=== PATIENT | female | born 1935 | race Caucasian/White ===

== ENCOUNTER 2017-05-03 12:03 | Inpatient (IN) ==
[2017-05-03] MEDS ORDERED: 0.9 % Sodium Chloride 1,000 ML IVC ONE (12:13)
[2017-05-03] MEDS ORDERED: Ondansetron 4 MG/2 ML VIAL IVP ONE ×2 (12:13→16:14)
[2017-05-03] MEDS ORDERED: *HR* FentaNYL (PF) 100 MCG/2 ML VIAL IVP ONE ×2 (12:16→14:53)
--- NOTE | 2017-05-03 12:19 | Emergency Department Note ---
Disposition Clinical Impression: Left hip pain Fall with significant injury Qualifiers: Encounter type: initial encounter Qualified Code(s): W19.XXXA - Unspecified fall, initial encounter Back pain Qualifiers: Back pain location: thoracic back pain Chronicity: acute Back pain laterality: bilateral Qualified Code(s): M54.6 - Pain in thoracic spine Left shoulder pain Qualifiers: Chronicity: acute Qualified Code(s): M25.512 - Pain in left shoulder Disposition: Admitted As Inpatient Condition: Fair Referrals: Luis Armando Viera MD [Primary Care Provider] - Time of Disposition: 15:21 Fall HPI - General Chief Complaint: ED Fall Stated Complaint: fall Time Seen by Provider: 05/03/17 12:09 Source: family, EMS Nursing Notes Reviewed: Yes Vital Signs Reviewed: Yes - History of Present Illness HPI Narrative: 81-year-old female who presents by EMS secondary to fall in a parking lot no loss of consciousness but unsure why patient fell. Patient states she fell a few weeks ago as well with without explanation. Patient has a walker which was found underneath her. Patient states she hurts on the left side of her head left shoulder and left elbow and Left pelvis patient unable to move. x 2 hrs. unsure if this was a mechanical fall. Patient's states she got ahead of him but then turned slightly lost balance and then fell while walking with her walker. She states she is down for quite some time unable to move because of problems with getting an ambulance. Patient has a history of neuropathy of unknown origin which may be part of the problem. Patient also started on a new medication for her neuropathy 4 weeks ago that also may be attributing. Patient denies anticoagulation use. - Related Data Home Medications Medication Instructions Recorded Confirmed Unable To Obtain [Unable to Obtain] 04/25/17 04/25/17 Allergies Allergy/AdvReac Type Severity Reaction Status Date / Time No Known Allergies Allergy Verified 04/25/17 10:06 All systems ED: reviewed and negative except as stated. Review of Systems: As Per HPI Constitutional: Denies: fever, weakness Eyes: Denies: vision change ENT ED: Denies: congestion Cardiovascular: Denies: chest pain Respiratory: Denies: cough, wheezes Gastrointestinal: Denies: abdominal pain, nausea, vomiting, diarrhea Genitourinary: Denies: urgency, dysuria Musculoskeletal: Reports: back pain, neck pain Integumentary: Denies: rash Neurological: Denies: headache Hematological/Lymphatic: Denies: easy bleeding Fall PMH - Past Medical History Medical history: Reports: hypertension Psychiatric history: Reports: no psych history - Social History Smoking Status: Never smoker Alcohol use: Reports: none Drug use: Reports: none Physical Exam Vital Signs Temperature 97.4 F L 05/03/17 12:04 Pulse Rate 64 05/03/17 12:04 Respiratory Rate 18 05/03/17 12:04 Blood Pressure 127/73 05/03/17 12:04 O2 Sat by Pulse Oximetry 100 05/03/17 12:04 Temperature 97.4 F L 05/03/17 12:04 Pulse Rate 64 05/03/17 12:04 Respiratory Rate 18 05/03/17 12:04 Blood Pressure 127/73 05/03/17 12:04 O2 Sat by Pulse Oximetry 100 05/03/17 12:04 Oxygen Delivery Oxygen Delivery Room Air 81-year-old female who is alert and oriented 3 and is in acute distress secondary to pain. Patient is unable to move and had to be rolled onto her right side secondary to pain down completely left side of her body. Patient has inability to move the left upper extremity and has tenderness at the humerus , elbow, forearm. She has midline cervical tenderness and possibly mid thoracic tenderness to palpation but unable to discern secondary to patient having difficulty discerning pain in her upper extremity and hip with her back. No gross deformities palpated no step-offs no deviations no bruising of her spine. Patient has positive tenderness to her pelvis and hip on the left side. Patient has no abnormal vital signs - General Limitations: no limitations General appearance: alert, in no apparent distress - Head Head exam: atraumatic, normocephalic, normal inspection - Eye Eye exam: Present: normal appearance, PERRL, EOMI - ENT ENT exam: normal exam, normal oropharynx, mucous membranes moist - Neck Neck exam: Present: normal inspection, full ROM, trachea midline, tenderness - Chest Chest inspection: Present: normal inspection, symmetric chest wall rise - Respiratory Respiratory exam: Present: normal lung sounds bilaterally - Cardiovascular Cardiovascular exam: Present: regular rate, normal rhythm, normal heart sounds Course Vital Signs Temperature 97.4 F L 05/03/17 12:04 Pulse Rate 64 05/03/17 12:04 Respiratory Rate 18 05/03/17 12:04 Blood Pressure 127/73 05/03/17 12:04 O2 Sat by Pulse Oximetry 100 05/03/17 12:04 Temperature 97.4 F L 05/03/17 12:04 Pulse Rate 64 05/03/17 12:04 Respiratory Rate 18 05/03/17 12:04 Blood Pressure 127/73 05/03/17 12:04 O2 Sat by Pulse Oximetry 100 05/03/17 12:04 Oxygen Delivery Oxygen Delivery Room Air Fall - MDM Narrative Medical decision making narrative: Fall injury secondary to possible mechanical reasons/possible other reasons that need to be identified. Imaging: CT head, cervical, x-ray left shoulder, humerus, elbow, forearm, wrist, chest x-ray, left pelvis and hip ordered. Patient administered medications for pain: 50 g fentanyl, IV normal saline ordered 1 L. Labs: CBC, BMP, troponin, LFTs ordered to rule out other causes. X-ray results: Displaced angulated oblique humerus diaphyseal fracture. Triceps muscular shadow appears prominent which may be due to swelling, however cannot exclude intramuscular hematoma. Subacute appearing fractures of the right superior and inferior pubic rami with apparent callus formation. Urinalysis shows large blood and moderate amount of leukocyte esterase. Sample sent for culture. If culture showed bacteria recommend start patient on antibiotic therapy. Patient currently does not have any urinary symptoms. No subacute factors identified on other imaging. Discussed case with Dr. Martinez of orthopedic surgery who states that may on to medicine and he will see the patient today. Patient has been admitted to hospitalists Dr. Antonio was except the patient for inpatient treatment for pain control until orthopedics has evaluated patient. Patient placed in a sling and will continue pain management issues are really had to 50 g doses of fentanyl IV. On reevaluation patient still has good radial pulse and equal sensation when compared to right upper extremity. The patient has no decreased sensation in her lower extremities as well. - Lab Data Lab results reviewed: Yes I reviewed the patient's lab results. Lab results narrative: Short CBC 05/03/17 Range/Units 12:28 WBC 7.5 (4.3-11.1) K/mcL Hgb 14.6 (11.5-15.4) g/dL Hct 43.7 (35.3-44.9) % Plt Count 154 (140-400) K/mcL Neutrophils # 5.2 (1.6-8.9) K/mcL BMP 12/15/17 Range/Units 12:28 Sodium 138 (136-145) mEq/L Potassium 3.6 (3.5-4.5) mEq/L Chloride 101 (98-109) mEq/L Carbon Dioxide 30 H (19-29) mEq/L BUN 17 (7-20) mg/dL Creatinine 0.91 (0.57-1.11) mg/dL Glucose 105 H (70-99) mg/dL Calcium 10.2 (8.6-10.8) mg/dL Liver Function 05/03/17 Range/Units 12:28 Total Bilirubin 0.9 (0.2-1.2) mg/dL AST 27 (5-34) Units/L ALT 19 (0-55) Units/L Alkaline Phosphatase 61 (38-126) Units/L Albumin 3.7 (3.5-5.0) g/dL Urine 05/03/17 Range/Units 13:54 Urine Color Yellow (Yellow) Urine Clarity Cloudy A (Clear) Urine pH 6.0 (5.0-8.0) pH Units Ur Specific [place] 1.017 (1.010-1.025) Urine Protein Negative (Neg-Trace) mg/dL Urine Glucose (UA) Normal (Normal) mg/dL - Radiology Data Radiology results reviewed: Yes I reviewed the patient's radiology results. Cervical Spine CT 05/03/17 12:13 IMPRESSION: No acute fracture of the cervical spine evident. D/ / Martín Natarajan MD / Martín Natarajan MD Interpreting Provider: Martín Natarajan MD Chest X-Ray 05/03/17 12:13 IMPRESSION: 1. No active pulmonary disease. 2. Cardiomegaly without overt failure. 3. Hiatal hernia. D/ / Darrin Kim MD / Darrin Kim MD Interpreting Provider: Darrin Kim MD Head CT 05/03/17 12:13 IMPRESSION: No acute intracranial abnormality. D/ / Chelsea House / Chelsea House Interpreting Provider: Chelsea House Hip X-Ray 05/03/17 12:13 IMPRESSION: 1. No definite acute fracture of the pelvis and left hip. 2. Subacute appearing fractures of the right superior and inferior pubic rami with apparent callus formation. 3. Moderate bilateral hip osteoarthritis. 4. No obvious sacral fracture. Evaluation is severely limited by overlying bowel gas and stool. D/ / 05/03/2017 14:05:46 Penelope Gonzalez MD / nohemy Interpreting Provider: Penelope Gonzalez MD Elbow X-Ray 05/03/17 12:21 IMPRESSION: 1. Partial visualization of a humerus fracture discussed in a separate report. 2. The elbow, forearm and hand showed no acute abnormality. D/ / Harvey Navarro MD / Harvey Navarro MD Interpreting Provider: Harvey Navarro MD Forearm X-Ray 05/03/17 12:49 IMPRESSION: 1. Partial visualization of a humerus fracture discussed in a separate report. 2. The elbow, forearm and hand showed no acute abnormality. D/ / Harvey Navarro MD / Harvey Navarro MD Interpreting Provider: Harvey Navarro MD Hand X-Ray 05/03/17 12:49 IMPRESSION: 1. Partial visualization of a humerus fracture discussed in a separate report. 2. The elbow, forearm and hand showed no acute abnormality. D/ / Harvey Navarro MD / Harvey Navarro MD Interpreting Provider: Harvey Navarro MD Humerus X-Ray 05/03/17 12:49 IMPRESSION: Displaced angulated oblique humerus diaphyseal fracture. Triceps muscular shadow appears prominent which may be due to swelling, however cannot exclude intramuscular hematoma. D/ / Slim Obrien / Slim Obrien Interpreting Provider: Slim Obrien - EKG Data EKG attestation: Yes I reviewed and interpreted this EKG. EKG results narrative: EKG taken 05/03/2017 at 1324 hrs. shows an irregularly irregular rhythm with first-degree AV block at a rate of 73 bpm.
[2017-05-03 12:38] LABS: Basophils % 0.5 %; Eosinophils # 0.1 K/mcL (0.0-0.6); Eosinophils % 1.9 %; Hematocrit 43.7 % (35.3-44.9); Hemoglobin 14.6 g/dL (11.5-15.4); Immature Granulocytes % 1.2 % (0-4); Lymphocytes # 1.7 K/mcL (0.6-4.6); Lymphocytes % 22.2 %; Mean Corpuscular HGB Conc 33.4 g/dL (31.6-35.5); Mean Corpuscular Hemoglobin 30.9 pg (28.0-33.3); Mean Corpuscular Volume 92.4 fL (83.0-100.0); Mean Platelet Volume 10.7 fL (9.4-12.4); Monocytes # 0.3 K/mcL (0.0-1.3); Monocytes % 4.4 %; Neutrophils # 5.2 K/mcL (1.6-8.9); Platelet Count 154 K/mcL (140-400); Red Blood Count 4.73 M/mcL (3.82-4.97); Red Cell Distribution Width 12.9 % (11.5-14.5); Segmented Neutrophils % 69.8 %
--- NOTE | 2017-05-03 12:39 | Emergency Department Note ---
START Narrative - START START: I examined this patient and my medical decision-making was reviewed with the GASOLINE ATTENDANT/PA/Advanced Practice Nurse/Resident Physician. I agree with the documented findings, disposition and treatment plan as described except to the extent set forth below. ED attending note: Patient seen with emergency medicine resident Dr. Abdelrahman Alcantara. We independently evaluated the patient. We independently had face-to- face contact with the patient. Please see a copy of his note for details of the history and physical, evaluation, management and disposition of this emergency Department patient. Briefly: A 81-year-old female mechanical fall while using cane, 45 minutes until EMS arrived was at her side. There was no loss of consciousness she has pain in her back shoulder and bilateral hips. She is not on blood thinners. Her GCS is 15. She is nonfocal neurologically. There is no open lacerations or wounds. CT and x-rays are pending. Disposition pending. Clinically cleared after she was log rolled off the long board.
[2017-05-03 12:52] LABS: Alanine Aminotransferase 19 Units/L (0-55); Albumin 3.7 g/dL (3.5-5.0); Albumin/Globulin Ratio 1.1 (1.1-2.2); Alkaline Phosphatase 61 Units/L (38-126); Aspartate Amino Transferase 27 Units/L (5-34); BUN/Creatinine Ratio 19 (6-26); Bilirubin,Total 0.9 mg/dL (0.2-1.2); Blood Urea Nitrogen 17 mg/dL (7-20); Calcium 10.2 mg/dL (8.6-10.8); Carbon Dioxide 30 mEq/L (19-29); Chloride 101 mEq/L (98-109); Globulin 3.5 g/dL (2.4-3.5); Glucose 105 mg/dL (70-99); Osmolality,Calculated 288 (280-300); Potassium 3.6 mEq/L (3.5-4.5); Sodium 138 mEq/L (136-145); Total Protein 7.2 g/dL (6.0-8.3); eGFR For African Americans > 60 (> 60); eGFR For Non-African Americans 59 (> 60)
[2017-05-03 13:06] LABS: Creatine Kinase 121 Units/L (29-168)
[2017-05-03 14:03] LABS: Bilirubin,Urine Negative (Negative); Blood,Urine Large (Negative); Clarity,Urine Cloudy (Clear); Color,Urine Yellow (Yellow); Glucose,Urine (UA) Normal (Normal); Ketones,Urine Negative (Negative); Leukocyte Esterase,Urine Moderate (Negative); Nitrite,Urine Negative (Negative); Protein,Urine Negative (Neg-Trace); Specific Gravity,Urine 1.017 (1.010-1.025); Urobilinogen,Urine Normal (Normal)
[2017-05-03 14:06] LABS: Bacteria,Urine Moderate per hpf (None-Few); Hyaline Casts,Urine None Seen per lpf (None-Few); RBC,Urine TNTC per hpf (0-3); Squamous Epithelial Cell,Urine Moderate per lpf (None-Few); WBC,Urine 50-100 per hpf (0-3)
[2017-05-03] MEDS ORDERED: Naloxone 0.4 MG/ML INJ IVP PRN (16:02)
[2017-05-03] MEDS ORDERED: *HR* Morphine 2 MG/ML SYRINGE IVP PRN (16:02)
[2017-05-03] MEDS ORDERED: Ondansetron 4 MG/2 ML VIAL IVP PRN (16:02)
--- NOTE | 2017-05-03 16:10 | Internal Med History&Physical ---
Date of Encounter: 05/03/17 Time of Encounter: 15:00 Assessment and Plan (1) Left humeral fracture Current visit: Yes Status: Acute Secondary to fall. - Orthopedic surgery consulted, appreciate assistance - Pain management with PO narcotics and IV narcotics PRN - NPO at midnight in case surgical management is indicated. Qualifiers: Encounter type: initial encounter Humerus Location: shaft Fracture type: closed Fracture morphology: unspecified fracture morphology Qualified Code(s ): S42.302A - Unspecified fracture of shaft of humerus, left arm, initial encounter for closed fracture (2) HTN (hypertension) Current visit: Yes Status: Acute BP stable - attempt to obtain home medication list, currently unavailable Qualifiers: Hypertension type: essential hypertension Qualified Code(s): I10 - Essential (primary) hypertension Internal Medicine - H&P: HPI Chief complaint: Left humerus fracture Plans for Post Hospital Care: Home History of present illness: Ms. Alvarez is a 81 year old female with history of GERD, HTN, and peripheral neuropathy who presented to the ED this afternoon after falling outside of a business today while walking to her car. Her was with her and she was using her walker, but she lost her balance and fell. She remembers the entire event, did not lose consciousness and did not hit her head. She complained of back pain and so she was not moved for 40 minutes while waiting for an ambulance to arrive. In the ED she was found to have a left humerus fracture and orthopedic surgery was consulted. She states that she fell two weeks ago and had rib contusions diagnosed at her local ED. Past Med Surg Social Fam HX - Past Medical History Medical history: GERD, hypertension Psychiatric history: no psych history - Past Surgical History Surgical History: no surgical history - Social History Smoking Status: Never smoker Alcohol use: none Drug use: none - Family History Mother Hx Family Cardiac Disorders: Yes Internal Medicine - H&P: Meds Unable To Obtain [Unable to Obtain] 04/25/17 [History] 3 Allergy/AdvReac Type Severity Reaction Status Date / Time No Known Allergies Allergy Verified 04/25/17 10:06 All Systems PM: A 10-system review of systems was performed and is negative for pertinent findings except as documented above in the HPI. - Constitutional Vitals: Temp Pulse Resp BP Pulse Ox 97.4 F L 70 16 127/73 98 05/03/17 12:04 05/03/17 16:01 05/03/17 16:01 05/03/17 16:01 05/03/17 16:01 General appearance: Present: A&O X 3, pleasant, no acute distress - Head Head exam: Present: atraumatic - Eye Eye exam: Present: EOMI, sclera anicteric - ENT ENT exam: Present: mucous membranes moist - Neck Neck exam general surgery: Present: supple - Respiratory Respiratory exam: Present: CTAB. Absent: wheezes - Cardiovascular Cardiovascular exam: Present: RRR. Absent: diastolic murmur, gallop, rubs, systolic murmur - GI/Abdominal GI/Abdominal exam: Present: normal bowel sounds, soft. Absent: distended, tenderness - Extremities Exam Extremities exam: Absent: pedal edema - Neurological Exam Neurological exam: Present: no focal deficits - Skin Skin exam: Absent: rash Internal Med - H&P Results - Labs CBC & Chem 7: 05/03/17 12:28 05/03/17 12:28
[2017-05-03] MEDS ORDERED: Ondansetron 4 MG/2 ML VIAL ONE (16:17)
--- NOTE | 2017-05-03 16:48 | Orthopedic Consult Note ---
Date of Encounter: 05/03/17 Time of Encounter: 17:15 Assessment and Plan (1) Left humeral fracture Current Visit: Yes Status: Acute Patient has left humeral fracture which will require ORIF. Plan for this to be performed by Dr. Martinez on 05/05/17. Procedure as well as r/b/a were discussed with patient and family and consent was obtained. All questions answered. Patient sent from ER with only simple sling. She needs to have posterior splint applied. Nursing made aware and will arrange for this to be applied. Ice and elevate as needed. ROM of fingers as tolerated. NWB. Pain control per hospitalist. Qualifiers: Encounter type: initial encounter Humerus Location: shaft Fracture type: closed Fracture morphology: unspecified fracture morphology Qualified Code(s ): S42.302A - Unspecified fracture of shaft of humerus, left arm, initial encounter for closed fracture History of Present Illness Chief complaint: left arm pain HPI: Ms. Alvarez is a 81 year old female who fell in a parking lot earlier today landing on her left side. She has had pain in the left shoulder, elbow, hip, and back since the fall. Denies hitting head or LOC. Pain in arm described as aching pain, constant, worse with motion. Denies numbness or tingling to all extremities. She has constant aching pain in back as well. She normally ambulates well with a walker. She fell today due to loss of balance. She has fallen several times recently. Denies chest pain, SOB, fevers recently. Past Med Surg Social Fam HX - Past Medical History Medical history: GERD, hypertension Psychiatric history: no psych history - Past Surgical History Surgical History: no surgical history - Social History Smoking Status: Never smoker Alcohol use: none Drug use: none - Family History Mother Hx Family Cardiac Disorders: Yes Medications and Allergies Unable To Obtain [Unable to Obtain] 04/25/17 [History] 3 Allergy/AdvReac Type Severity Reaction Status Date / Time No Known Allergies Allergy Verified 04/25/17 10:06 All Systems Reviewed: A 10-system review of systems was performed and is negative for pertinent findings except as documented above in the HPI. - Constitutional Constitutional: as per HPI - Cardiovascular Cardiovascular: as per HPI - Respiratory Respiratory: as per HPI - Musculoskeletal Musculoskeletal: as per HPI Physical Exam - Constitutional Vitals: Temp Pulse Resp BP Pulse Ox 97.4 F L 70 16 127/73 98 05/03/17 12:04 05/03/17 16:01 05/03/17 16:01 05/03/17 16:01 05/03/17 16:01 - Elbow left Location of pain elbow: anterior, posterior Pain modifiers elbow: with activity (LUE in sling, full ROM of fingers and wrist , ROM of elbow and shoulder restricted secondary to known fracture, grossly NV intact, brisk cap refill. ) Results - Labs Result Diagrams: 05/03/17 12:28 05/03/17 12:28 Labs: Abnormal lab results Carbon Dioxide 30 mEq/L (19-29) H 05/03/17 12:28 Est GFR (Non-Af Amer) 59 (> 60) L 05/03/17 12:28 Glucose 105 mg/dL (70-99) H 05/03/17 12:28 Urine Clarity Cloudy (Clear) A 05/03/17 13:54 Urine Blood Large (Negative) H 05/03/17 13:54 Ur Leukocyte Esterase Moderate (Negative) H 05/03/17 13:54 Urine Microscopic RBC TNTC per hpf (0-3) H 05/03/17 13:54 Urine Microscopic WBC 50-100 per hpf (0-3) H 05/03/17 13:54 Ur Squamous Epith Cells Moderate per lpf (None-Few) H 05/03/17 13:54 Urine Bacteria Moderate per hpf (None-Few) H 05/03/17 13:54 Ur Culture Indicated? YES (NO) A 05/03/17 13:54 All other labs normal. - Diagnostic results Elbow x-ray: report reviewed, image reviewed Wrist/Hand x-ray: report reviewed, image reviewed Hip x-ray: report reviewed, image reviewed Consult Discharge Plan - Plan Referrals: Luis Armando Viera MD [Primary Care Provider] - - Attending Attestation Case and plan of care discussed with supervising physician who was available for all aspects of care.
[2017-05-03] MEDS: *HR* OxyCODONE Immed Rel 5 MG TABLET PO PRN ×2 (18:46→22:08)
[2017-05-04] MEDS: *HR* OxyCODONE Immed Rel 5 MG TABLET PO PRN ×3 (03:43→21:52)
[2017-05-04 07:03] LABS: Basophils % 0.1 %; Eosinophils % 0.1 %; Hematocrit 37.5 % (35.3-44.9); Immature Granulocytes % 0.5 % (0-4); Lymphocytes # 1.1 K/mcL (0.6-4.6); Lymphocytes % 11.2 %; Mean Corpuscular HGB Conc 33.9 g/dL (31.6-35.5); Mean Corpuscular Hemoglobin 31.4 pg (28.0-33.3); Mean Corpuscular Volume 92.6 fL (83.0-100.0); Mean Platelet Volume 10.6 fL (9.4-12.4); Monocytes # 0.5 K/mcL (0.0-1.3); Monocytes % 4.9 %; Neutrophils # 8.1 K/mcL (1.6-8.9); Platelet Count 165 K/mcL (140-400); Red Blood Count 4.05 M/mcL (3.82-4.97); Red Cell Distribution Width 13.1 % (11.5-14.5); Segmented Neutrophils % 83.2 %
[2017-05-04 07:16] LABS: BUN/Creatinine Ratio 25 (6-26); Blood Urea Nitrogen 19 mg/dL (7-20); Calcium 9.3 mg/dL (8.6-10.8); Carbon Dioxide 29 mEq/L (19-29); Chloride 101 mEq/L (98-109); Glucose 142 mg/dL (70-99); Osmolality,Calculated 291 (280-300); Potassium 3.2 mEq/L (3.5-4.5); Sodium 138 mEq/L (136-145); eGFR For African Americans > 60 (> 60); eGFR For Non-African Americans > 60 (> 60)
[2017-05-04 07:19] LABS: Hemoglobin 12.7 g/dL (11.5-15.4)
--- NOTE | 2017-05-04 09:29 | Internal Med Progress Note ---
Date of Encounter: 05/04/17 Time of Encounter: 08:50 - Assessment and plan (1) Hypokalemia Current Visit: Yes Status: Acute Assessment and plan: Replaced, continue to monitor (2) Left humeral fracture Current Visit: Yes Status: Acute Assessment and plan: Management per ortho Pain control and DVT prophylaxis Obtain Sacrum/coccyx Xray for tail bone pain Qualifiers: Encounter type: initial encounter Humerus Location: shaft Fracture type: closed Fracture morphology: unspecified fracture morphology Qualified Code(s ): S42.302A - Unspecified fracture of shaft of humerus, left arm, initial encounter for closed fracture (3) HTN (hypertension) Current Visit: Yes Status: Chronic Assessment and plan: Controlled at this time, initiate home meds when confirmed and prn Qualifiers: Hypertension type: essential hypertension Qualified Code(s): I10 - Essential (primary) hypertension (4) Abnormal urinalysis Current Visit: Yes Status: Acute Assessment and plan: Prsenece of blood and LE Sent for culture Start 1g ceftriaxone daily, will de-escalate if culture is negative - Subjective Interval history: Seen and evaluated at bedside Admitted and being managed for a left humeral fracture following a fall. Patient has a medical history of hypertension, blood pressure currently controlled without medications. She complained of tailbone pain upon evaluation this is worse when she is moved. This is her second fall in 2 weeks - Constitutional Vitals: Temp Pulse Resp BP Pulse Ox 98.3 F 63 17 106/66 91 05/04/17 06:58 05/04/17 06:58 05/04/17 06:58 05/04/17 06:58 05/04/17 06:58 General appearance: Present: A&O X 3, pleasant, no acute distress - Head Head exam: Present: atraumatic, normocephalic - Eye Eye exam: Present: PERRL, conjuntiva pink, sclera anicteric Pupils: Present: PERRL - Neck Neck exam general surgery: Present: supple, trachea midline. Absent: lymphadenopathy - Respiratory Respiratory exam: Present: CTAB. Absent: accessory muscle use, rales, rhonchi, wheezes - Cardiovascular Cardiovascular exam: Present: RRR, +S1, +S2. Absent: diastolic murmur, gallop, rubs, systolic murmur - GI/Abdominal GI/Abdominal exam: Present: normal bowel sounds, soft, no peritoneal signs. Absent: distended, tenderness - Extremities Exam Additional comments: L arm in sling, neurovascularly intact - Neurological Exam Neurological exam: Present: alert, CN II-XII intact, oriented X3, no focal deficits. Absent: pronater drift, facial droop, speech deficit - Skin Skin exam: Present: dry, intact Internal Medicine: Result - Labs CBC & Chem 7: 05/04/17 06:41 05/04/17 06:41 Labs: Short CBC 05/04/17 Range/Units 06:41 WBC 9.7 (4.3-11.1) K/mcL Hgb 12.7 D (11.5-15.4) g/dL Hct 37.5 (35.3-44.9) % Plt Count 165 (140-400) K/mcL Neutrophils # 8.1 (1.6-8.9) K/mcL BMP 05/04/17 06:41 Sodium 138 Potassium 3.2 L Chloride 101 Carbon Dioxide 29 BUN 19 Creatinine 0.75 Glucose 142 H Calcium 9.3 Consult Discharge Plan - Plan Referrals: Luis Armando Viera MD [Primary Care Provider] -
[2017-05-04] MEDS ORDERED: cefTRIAXone 1,000 MG in Water for inj. (sterile) 10 ML IVP SCH (10:00)
[2017-05-04] MEDS ORDERED: Acetaminophen 325 MG TABLET PO PRN ×2 (11:01→19:54)
[2017-05-04] MEDS ORDERED: Ondansetron 4 MG/2 ML VIAL ONE (14:41)
[2017-05-04] MEDS ORDERED: *HR* FentaNYL (PF) 100 MCG/2 ML VIAL ONE (14:41)
[2017-05-04] MEDS ORDERED: Lidocaine -MPF 2% 2 ML VIAL ONE (14:41)
[2017-05-04] MEDS ORDERED: *HR* Rocuronium Bromide 50 MG/5 ML VIAL ONE (14:41)
[2017-05-04] MEDS ORDERED: *HR* Propofol 200 MG/20 ML VIAL IVP ONE (14:41)
[2017-05-04] MEDS ORDERED: Ringers Solution, Lactated 1,000 ML ONE (14:44)
--- NOTE | 2017-05-04 14:59 | Anesthesia Evaluation PreOp ---
Date of Encounter: 05/04/17 Time of Encounter: 14:57 - Past History Planned Operation: ORIF R humerus Cardiac History: HTN Pulmonary History: Denies Any Significant HX INSPECTOR PENETRANT History: Denies Any Significant HX Other Medical History: GERD Anesthesia History: Past Anesthesia (none, no known family hx of anes complications) Alcohol Use: none Drug use: none Medications and Allergies Unable To Obtain [Unable to Obtain] 04/25/17 [History] 3 Allergy/AdvReac Type Severity Reaction Status Date / Time No Known Allergies Allergy Verified 04/25/17 10:06 - Meds/Allergy Pre-op Review Medications Reviewed: Yes Allergies Reviewed: Yes Beta Blockers on Current Med List: No Anesthesia Results - Labs 05/04/17 06:41 05/04/17 06:41 Anesthesia Exam Vital Signs/O2 Sat, Most Current Temp Pulse Resp BP Pulse Ox 98.1 F 78 17 111/73 93 05/04/17 11:15 05/04/17 11:15 05/04/17 11:15 05/04/17 11:15 05/04/17 11:42 Height: 1.57m Weight: 80kg NPO (# of Hours): >8 - HEENT Pupil (Motor): Pupils equal, EOMI Mallampati: II Teeth: Edentulous Oral Opening: Greater than 3 - INSPECTOR PENETRANT LOC: Oriented INSPECTOR PENETRANT Motor: Normal RUE, Normal LUE, Normal RLE, Normal LLE, Normal Face INSPECTOR PENETRANT Sensory: Normal: RUE, LUE, RLE, LLE, Face - Cardiac Rhythm: Regular - Pulmonary Breath Sounds: bilateral Clear Respiratory Effort: Symmetrical Anesthesia Assess/Plan ASA Score: 2 Modified Stephania Scale for Level of Consciousness: Cooperative, oriented, and tranquil Anesthetic Plan: General (r/b/a discussed, questions answered, consent obtained) , Regional (Left supraclav nn block) Monitoring Plan: Standard Monitors Recovery Plan: PACU
[2017-05-04] MEDS ORDERED: Ringers Solution, Lactated 1,000 ML IVC SCH ×2 (15:00→19:54)
--- NOTE | 2017-05-04 15:59 | Anesthesia Procedures ---
Date of Encounter: 05/04/17 Time of Encounter: 14:50 Procedures: Anesthesia - Nerve Block Procedure Date: 05/04/17 Time: 15:57 Pre-op Diagnosis: Left humerus fracture Surgical Procedure: ORIF L humerus fracture Checklist: Correct Patient Identifier, Correct procedure, History checked Correct side: Left Blood Thinner: No Monitor Applied: EKG, BP, Pulse Oximetry Supplemental Oxygen via Nasal Cannula (L/min): 2 Sedation: Fentanyl (mcg): 100 Indication: Post Op Analgesia (per surgeons request) Pre-op Neuro Deficits: No Block Type: Supraclavicular Sterile Technique: Yes Ultrasound used: Yes Anatomy identified: Yes Visual spread of Local: Yes Neuro Stimulation: No Blood on Needle Aspiration: No Smooth Injection of Local: Yes Pain with Injection of Local: No Prep: Chlorhexadine Needle: 22 x 50 mm Stimuplex Local: Ropivacaine (0.5%) Volume (cc): 30 Number of Attempts: 1 Complications: None/effective block Vitals: see nursing notes
[2017-05-04] MEDS ORDERED: Ondansetron 4 MG/2 ML VIAL IVP ONE ×2 (16:00→19:54)
[2017-05-04] MEDS ORDERED: Plasma-Lyte A (PH 7.4) 1,000 ML IVC SCH (16:00)
[2017-05-04] MEDS ORDERED: *HR* FentaNYL (PF) 100 MCG/2 ML VIAL IVP PRN ×2 (16:00→19:54)
[2017-05-04] MEDS ORDERED: Naloxone 0.4 MG/ML INJ IVP PRN ×3 (16:00→19:54)
[2017-05-04] MEDS ORDERED: Neostigmine Methylsulfate 3 MG/3 ML SYRINGE ONE (17:30)
--- NOTE | 2017-05-04 18:17 | Operative Note ---
Date of procedure: 05/04/17 Pre-op diagnosis: Left humeral shaft fracture, distal third spiral fracture Post-op diagnosis: same Procedure: Left humerus open reduction internal fixation Implants: Synthes 3.5 mm extra-articular postero-lateral plate Anesthesia: JUDY regional Surgeon: Zach Martinez Estimated blood loss (cc): 500 Tourniquet Time (Minutes): 23 Specimen: 0 Condition: stable Disposition: PACU Procedure in Detail: Indications for surgery: Patient is an 81-year-old left woman who fell yesterday sustaining a fracture of the distal humerus shaft with no articular extension. The fracture was a displaced spiral fracture at the mid to distal third level.. Procedure: The patient received IV antibiotics in the holding area, and also received a supraclavicular block. She was brought into the operating room, placed on the OR table where and underwent general anesthesia. The patient was then positioned in the right lateral decubitus position using a pelvic youssef to stabilize. All bony prominences were well-padded, and an axillary roll was also used. The left upper extremity was then prepped and draped in usual sterile fashion. A sterile tourniquet was applied to the upper arm, as close to the axilla as possible. A large bump was placed under the right arm. A timeout was then performed. The left upper extremity was then elevated, exsanguinated with Cornleius wrap, and the tourniquet was raised to a pressure of 250 mmHg. A 15 cm posterior longitudinal incision was made curving incision slightly to the lateral side of the tip of the olecranon. Subcutaneous tissue was sharply incised with Bovie cutting down to the level of the triceps fascia. A hart elevator was then used to expose the triceps from the medial and lateral intermuscular septae. The ulnar nerve was then dissected out, and gently mobilized just up to the cubital tunnel level. A yellow vessel loop was placed around the ulnar nerve to diya this location. The lateral septum was also elevated off the lateral column. The triceps muscle was elevated. I identified the musculocutaneous and radial nerves passing through the lateral intermuscular septum. The nerve was dissected out and tracing it proximally. This was also tagged with a yellow vessel loop. The triceps muscle mass was elevated exposing the fracture. The top part of the fracture was at the spiral groove with a nerve crossing. In order to get better exposure, the tourniquet was removed and incision was lengthened 5 cm proximally. The nerve was dissected more proximally heading up to a spiral groove and protecting it. Axial traction was applied distracting the fracture. The fracture was cleaned up with curettes, removing fracture hematoma. It was then irrigated out with normal saline. Since this was an extra-articular fracture, we used the posterior lateral extra-articular plate from Synthes. The fracture was reduced and held in place with large bone clamps. Since it was a long oblique fracture., a lag screw was placed distally from lateral to medial , perpendicular to the fracture line. This compressed the fracture and give relatively good stability. This allowed the clamps to be removed. An 8 hole plate was chosen and applied to the posterior surface of the lateral column. The plate was carefully slid under the radial nerve. The plate was secured distally initially with a bicortical screw. Once obtaining the appropriate alignment plate, and then further locked in place using the 2.7 mm locking screws, this was followed by an acentrically placed 3.5 mm screw proximally in compression mode, further compressing the fracture. The remaining screws were then filled in standard technique. This gave a strong construct. The wound was irrigated with normal saline. The ulnar nerve was checked to make sure it was stable, and left simply partially decompressed. The deep fascia was closed with 0 Vicryl sutures. Maria Teresa was also used for further hemostasis of the subcutaneous tissue. The skin was closed subcutaneously with 3-0 Vicryl and finally the skin with a Zipline. Sterile dressings were applied. The patient was placed into a neutral wedge sling. The patient was then positioned supine and extubated and taken to recovery room in stable condition.
--- NOTE | 2017-05-04 19:11 | Anesthesia Evaluation Post Op ---
Date of Encounter: 05/04/17 Time of Encounter: 19:10 - Vital Signs Vital Signs: Vital Signs/O2 Sat, Most Current Temp Pulse Resp BP Pulse Ox 97.9 F 68 16 118/80 91 05/04/17 18:48 05/04/17 18:48 05/04/17 18:48 05/04/17 18:48 05/04/17 18:48 - Lungs Lungs: Clear Ascult./Percussion - Airway Airway: Non-obstructed - Cardiovascular Regular Rate - Mental Status Mental Status: Alert & Oriented, Answers Appropriately - Pain Pain Scale: 0 Pain Scale used: Numeric (1 - 10) - Nausea Vomiting Nausea Vomiting: Not Present - Hydration Hydration: Ice chips - Discharge PostOp Status: Transfer Patient to floor Attestation: I have assessed this patient and find they meet discharge criteria.
[2017-05-04] MEDS ORDERED: MOM Conc 10 ML UD.LIQ PO PRN (19:54)
[2017-05-04] MEDS ORDERED: Sennosides 8.6 MG TABLET PO PRN (19:54)
[2017-05-04] MEDS ORDERED: Temazepam 15 MG CAPSULE PO PRN (19:54)
[2017-05-04] MEDS ORDERED: Ondansetron 4 MG/2 ML VIAL IVP PRN (19:54)
[2017-05-04] MEDS: Ringers Solution, Lactated 1,000 ML IVC SCH (21:55)
[2017-05-04] MEDS: CeFAZolin Premix DUPLEX 2,000 MG/50 ML BAG IVPB SCH (23:13)
[2017-05-05] MEDS: *HR* OxyCODONE Immed Rel 5 MG TABLET PO PRN ×3 (05:15→22:07)
[2017-05-05] MEDS: *HR* Enoxaparin 40 MG/0.4 ML SYRINGE SQ SCH (06:46)
[2017-05-05] MEDS: *HR* Morphine 2 MG/ML SYRINGE IVP PRN ×3 (06:53→18:14)
[2017-05-05 07:06] LABS: Basophils % 0.1 %; Hematocrit 29.9 % (35.3-44.9); Immature Granulocytes % 0.3 % (0-4); Lymphocytes # 1.2 K/mcL (0.6-4.6); Lymphocytes % 13.4 %; Mean Corpuscular HGB Conc 32.4 g/dL (31.6-35.5); Mean Corpuscular Hemoglobin 30.8 pg (28.0-33.3); Mean Corpuscular Volume 94.9 fL (83.0-100.0); Mean Platelet Volume 10.9 fL (9.4-12.4); Monocytes # 0.7 K/mcL (0.0-1.3); Monocytes % 8.1 %; Neutrophils # 7.1 K/mcL (1.6-8.9); Platelet Count 126 K/mcL (140-400); Red Blood Count 3.15 M/mcL (3.82-4.97); Red Cell Distribution Width 13.4 % (11.5-14.5); Segmented Neutrophils % 78.1 %
[2017-05-05 07:12] LABS: Hemoglobin 9.7 g/dL (11.5-15.4)
[2017-05-05 07:20] LABS: BUN/Creatinine Ratio 26 (6-26); Blood Urea Nitrogen 20 mg/dL (7-20); Calcium 8.9 mg/dL (8.6-10.8); Carbon Dioxide 30 mEq/L (19-29); Chloride 103 mEq/L (98-109); Glucose 127 mg/dL (70-99); Osmolality,Calculated 290 (280-300); Potassium 3.8 mEq/L (3.5-4.5); Sodium 138 mEq/L (136-145); eGFR For African Americans > 60 (> 60); eGFR For Non-African Americans > 60 (> 60)
[2017-05-05] MEDS ORDERED: *HR* LORazepam 0.5 MG TABLET PO PRN (08:11)
--- NOTE | 2017-05-05 08:50 | Internal Med Progress Note ---
Date of Encounter: 05/05/17 Time of Encounter: 08:25 - Assessment and plan (1) Acute blood loss as cause of postoperative anemia Current Visit: Yes Status: Acute Assessment and plan: HB down to 9.7 from 12.7, hemodynamically stable Continue to monitor Hb Type and screen done No indication for transfusion at this time (2) Hypokalemia Current Visit: Yes Status: Resolved Assessment and plan: Replaced, K WNL today (3) Left humeral fracture Current Visit: Yes Status: Acute Assessment and plan: Management per ortho POD 1 Pain control and DVT prophylaxis Qualifiers: Encounter type: initial encounter Humerus Location: shaft Fracture type: closed Fracture morphology: unspecified fracture morphology Qualified Code(s ): S42.302A - Unspecified fracture of shaft of humerus, left arm, initial encounter for closed fracture (4) HTN (hypertension) Current Visit: Yes Status: Chronic Assessment and plan: Controlled at this time, continue to hold home dose of HCTZ Qualifiers: Hypertension type: essential hypertension Qualified Code(s): I10 - Essential (primary) hypertension (5) Abnormal urinalysis Current Visit: Yes Status: Acute Assessment and plan: Presence of blood and LE Sent for culture Continue 1g ceftriaxone daily, -Day 2 will de-escalate if culture is negative - Subjective Interval history: Seen and evaluated at bedside Admitted and being managed for a left humeral fracture following a fall. POD 1 s/p Left humeral ORIF She continues to complains of Sacral/Coccyx pain, worse when she is moved She is able to move her legs and there is no sign of dislocation or hip frature Sacral/Coccyx Xray done 05/04 showed no fractures Will obtain L-spine Xray , patient has no sensory complains - Constitutional Vitals: Temp Pulse Resp BP Pulse Ox 98.2 F 94 16 129/67 94 05/05/17 06:40 05/05/17 06:40 05/05/17 06:40 05/05/17 06:40 05/05/17 06:40 General appearance: Present: A&O X 3, pleasant, no acute distress - Head Head exam: Present: atraumatic, normocephalic - Eye Eye exam: Present: PERRL, conjuntiva pink, sclera anicteric Pupils: Present: PERRL - Neck Neck exam general surgery: Present: supple, trachea midline. Absent: lymphadenopathy - Respiratory Respiratory exam: Present: CTAB. Absent: accessory muscle use, rales, rhonchi, wheezes - Cardiovascular Cardiovascular exam: Present: RRR, +S1, +S2. Absent: diastolic murmur, gallop, rubs, systolic murmur - Extremities Exam Extremities exam: Present: warm, radial pulses palpable and symmetrical. Absent : calf tenderness, cyanotic, pedal edema Additional comments: L arm and hand slighlty swollen Distal extremities well vascularized - Back Exam Additional comments: Limited exam as patient is unable to stand or sit up, no visible bruises on sacral region - Neurological Exam Neurological exam: Present: alert, CN II-XII intact, oriented X3, no focal deficits. Absent: pronater drift, facial droop, speech deficit - Skin Skin exam: Present: dry Internal Medicine: Result - Labs CBC & Chem 7: 05/05/17 06:40 05/05/17 06:40 Labs: Short CBC 05/05/17 Range/Units 06:40 WBC 9.1 (4.3-11.1) K/mcL Hgb 9.7 L D (11.5-15.4) g/dL Hct 29.9 L (35.3-44.9) % Plt Count 126 L (140-400) K/mcL Neutrophils # 7.1 (1.6-8.9) K/mcL BMP 05/05/17 06:40 Sodium 138 Potassium 3.8 Chloride 103 Carbon Dioxide 30 H BUN 20 Creatinine 0.76 Glucose 127 H Calcium 8.9 - Impressions Impressions Fluoroscopy 05/04/17 00:00 IMPRESSION: Intraprocedural fluoroscopic spot images as above. See separate procedure report for more information. D/ / Regina Deal Cha, MD / Regina Deal Cha, MD Interpreting Provider: Regina Deal Cha, MD Sacrum and Coccyx X-Ray 05/04/17 11:01 IMPRESSION: No acute abnormality of the sacrum and coccyx appreciated. Study somewhat limited by the patient's condition. RECOMMENDATION: If a strong suspicion of fracture exists, a CT scan of the pelvis without contrast would be recommended. D/ / Chai Beverly MD / Chai Beverly MD Interpreting Provider: Chai Beverly MD - VTE Documentation of Mechanical Device: Intermittent pneumatic compression device Consult Discharge Plan - Plan Referrals: Luis Armando Viera MD [Primary Care Provider] -
[2017-05-05] MEDS: Pregabalin 50 MG CAPSULE PO SCH ×2 (09:37→22:08)
[2017-05-05] MEDS: Loratadine 10 MG TABLET PO SCH (09:37)
[2017-05-05] MEDS: CeFAZolin Premix DUPLEX 2,000 MG/50 ML BAG IVPB SCH (09:37)
[2017-05-05] MEDS: Mirabegron [Myrbetriq] 50 MG PO SCH (09:39)
[2017-05-05] MEDS ORDERED: cefTRIAXone 1,000 MG in Water for inj. (sterile) 10 ML IVP SCH (10:00)
[2017-05-05] MEDS ORDERED: *HR* Morphine 2 MG/ML SYRINGE IVP ONE (10:05)
[2017-05-05] MEDS ORDERED: *HR* Morphine 2 MG/ML SYRINGE ONE (10:08)
[2017-05-05] MEDS: Ringers Solution, Lactated 1,000 ML IVC SCH ×2 (10:10→22:08)
--- NOTE | 2017-05-05 14:42 | Orthopedics Progress Note ---
Date of Encounter: 05/05/17 Time of Encounter: 14:39 Subjective Principal diagnosis: Left humerus fracture Interval history: Patient still complaining of sacral pain. She also reports pain in left shoulder. She reports block has worn off. Left upper extremity: Dressings are clean dry and intact, neutral wedge sling in place. Mild tenderness anterior shoulder. You have asked intact distally and hand with good flexion and extension of digits. Sensation intact to all digits and dorsal radial aspect of hand. Good capillary refill. Lumbar x-rays show arthritis. Patient had sacral x-rays yesterday and pelvic films the day before which showed no fractures. Postoperative day #1, stable Nonweightbearing to left upper extremity We will add NSAIDs for low back pain Continue DVT prophylaxis Continue OT/PT Objective Vital signs: Vital Signs Temp Pulse Resp BP Pulse Ox 05/05/17 12:12 98.8 F 86 16 103/62 94 Intake and Output 05/04/17 05/05/17 05/05/17 23:59 07:59 15:59 Intake Total 1700 / 1700 Balance 1700 / 1700 Intake: IV Fluids 1000 / 1000 Lactated Ringers 1,000 ML @ 75 1000 / 1000 mls/hr IVC .[id number] VAN Rx#: [id number] Oral 700 / 700 - Labs CBC & BMP: 05/05/17 06:40 05/05/17 06:40 Labs: Abnormal lab results RBC 3.15 M/mcL (3.82-4.97) L 05/05/17 06:40 Hgb 9.7 g/dL (11.5-15.4) L D 05/05/17 06:40 Hct 29.9 % (35.3-44.9) L 05/05/17 06:40 Plt Count 126 K/mcL (140-400) L 05/05/17 06:40 Carbon Dioxide 30 mEq/L (19-29) H 05/05/17 06:40 Glucose 127 mg/dL (70-99) H 05/05/17 06:40 Urine Clarity Cloudy (Clear) A 05/03/17 13:54 Urine Blood Large (Negative) H 05/03/17 13:54 Ur Leukocyte Esterase Moderate (Negative) H 05/03/17 13:54 Urine Microscopic RBC TNTC per hpf (0-3) H 05/03/17 13:54 Urine Microscopic WBC 50-100 per hpf (0-3) H 05/03/17 13:54 Ur Squamous Epith Cells Moderate per lpf (None-Few) H 05/03/17 13:54 Urine Bacteria Moderate per hpf (None-Few) H 05/03/17 13:54 Ur Culture Indicated? YES (NO) A 05/03/17 13:54 - VTE Documentation of Mechanical Device: Venous foot pump, device Consult Discharge Plan - Plan Referrals: Luis Armando Viera MD [Primary Care Provider] -
[2017-05-06] MEDS: *HR* Enoxaparin 40 MG/0.4 ML SYRINGE SQ SCH (06:04)
[2017-05-06 06:54] LABS: Basophils % 0.2 %; Eosinophils % 0.4 %; Immature Granulocytes % 0.6 % (0-4); Lymphocytes # 1.6 K/mcL (0.6-4.6); Lymphocytes % 17.3 %; Mean Corpuscular HGB Conc 33.3 g/dL (31.6-35.5); Mean Corpuscular Hemoglobin 31.7 pg (28.0-33.3); Mean Corpuscular Volume 95.1 fL (83.0-100.0); Mean Platelet Volume 11.1 fL (9.4-12.4); Monocytes # 0.7 K/mcL (0.0-1.3); Monocytes % 7.4 %; Neutrophils # 6.7 K/mcL (1.6-8.9); Platelet Count 116 K/mcL (140-400); Red Blood Count 2.84 M/mcL (3.82-4.97); Red Cell Distribution Width 13.6 % (11.5-14.5); Segmented Neutrophils % 74.1 %
[2017-05-06 07:01] LABS: BUN/Creatinine Ratio 28 (6-26); Blood Urea Nitrogen 18 mg/dL (7-20); Calcium 9.1 mg/dL (8.6-10.8); Carbon Dioxide 29 mEq/L (19-29); Chloride 104 mEq/L (98-109); Glucose 121 mg/dL (70-99); Osmolality,Calculated 289 (280-300); Potassium 3.7 mEq/L (3.5-4.5); Sodium 138 mEq/L (136-145); eGFR For African Americans > 60 (> 60); eGFR For Non-African Americans > 60 (> 60)
[2017-05-06] MEDS: *HR* OxyCODONE Immed Rel 5 MG TABLET PO PRN ×3 (07:04→22:34)
[2017-05-06] MEDS: Pregabalin 50 MG CAPSULE PO SCH ×2 (08:22→22:36)
[2017-05-06] MEDS: Loratadine 10 MG TABLET PO SCH (08:23)
[2017-05-06] MEDS: Mirabegron [Myrbetriq] 50 MG PO SCH (08:29)
--- NOTE | 2017-05-06 09:55 | Electrocardiograph Report ---
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
--- NOTE | 2017-05-06 11:15 | Physician Discharge Referral ---
ExtendedCare Referral Info Transfer To: [facility] Provider in Charge: Barney Strange Provider in Charge after Transfer: PCP Institutional Level of Care: Skilled - Diagnosis (1) Acute blood loss as cause of postoperative anemia Priority: Primary Status: Acute (2) Hypokalemia Priority: Primary Status: Resolved (3) Left humeral fracture Priority: Primary Status: Acute (4) HTN (hypertension) Priority: Secondary Status: Chronic (5) Abnormal urinalysis Priority: Primary Status: Resolved Prognosis: Fair Aware of Diagnosis: Patient Aware of Prognosis: Patient - Transfer Medications Home Medications: Loratadine [Allergy Relief] 10 mg PO DAILY 05/05/17 [History] Mirabegron [Myrbetriq] 50 mg PO DAILY 05/05/17 [History] Omeprazole [PriLOSEC] 20 mg PO DAILY 05/05/17 [History] Polyethylene Glycol 3350 [MiraLAX] 17 gm PO DAILY 05/05/17 [History] Potassium Chloride [Klor-Con 10] 10 meq PO DAILY 05/05/17 [History] Pravastatin Sodium [Pravachol] 40 mg PO QPM 05/05/17 [History] Pregabalin [Lyrica] 100 mg PO BID 05/05/17 [History] Solifenacin Succinate [Vesicare] 5 mg PO DAILY 05/05/17 [History] Docusate [Colace] 100 mg PO BID capsule 05/06/17 [Rx] LORazepam [Ativan] 0.5 mg PO DAILY PRN #10 tablet 05/06/17 [Rx] Oxycodone HCl/Acetaminophen [Percocet 5-325 mg Tablet] 1 each PO Q4HR PRN #20 tablet 05/06/17 [Rx] Temazepam [Restoril] 15 mg PO HS PRN capsule 05/06/17 [Rx] Allergies/Adverse Reactions: 3 Allergy/AdvReac Type Severity Reaction Status Date / Time No Known Allergies Allergy Verified 05/05/17 11:15 - Respiratory Orders Smoking Cessation: Smoking cessation has been advised. For more information, call the [place] Tobacco Quit Line at 6-997-YBDV-NOW. - Advance Directives Code Status: Full Code - Mobility Orders Ambulate - Rehabiliation Orders Rehab Potential: Fair Rehab Orders: Evaluation for Physical Therapy - Diet Orders Cardiac CERTIFICATION: I certify that the transfer of the above named patient to an Extended Care Facility is necessary for the continuing treatment of the diagnosis listed. The above information is true and accurate reflection of patient's current condition. Confidential - Redisclosure prohibited without a patient's written consent.
--- NOTE | 2017-05-06 11:21 | Discharge Summary ---
Date of Encounter: 05/06/17 Time of Encounter: 11:16 - Discharge Diagnosis (1) Acute blood loss as cause of postoperative anemia Priority: Primary Status: Acute (2) Hypokalemia Priority: Primary Status: Resolved (3) Left humeral fracture Priority: Primary Status: Acute Qualifiers: Encounter type: initial encounter Humerus Location: shaft Fracture type: closed Fracture morphology: unspecified fracture morphology Qualified Code(s ): S42.302A - Unspecified fracture of shaft of humerus, left arm, initial encounter for closed fracture (4) HTN (hypertension) Priority: Secondary Status: Chronic Qualifiers: Hypertension type: essential hypertension Qualified Code(s): I10 - Essential (primary) hypertension (5) Abnormal urinalysis Priority: Secondary Status: Acute - Discharge Medications Prescriptions: Oxycodone HCl/Acetaminophen [Percocet 5-325 mg Tablet] 1 each PO Q4HR PRN #20 tablet PRN Reason: Pain LORazepam [Ativan] 0.5 mg PO DAILY PRN #10 tablet PRN Reason: Anxiety Home Medications: Loratadine [Allergy Relief] 10 mg PO DAILY 05/05/17 [History] Mirabegron [Myrbetriq] 50 mg PO DAILY 05/05/17 [History] Omeprazole [PriLOSEC] 20 mg PO DAILY 05/05/17 [History] Polyethylene Glycol 3350 [MiraLAX] 17 gm PO DAILY 05/05/17 [History] Potassium Chloride [Klor-Con 10] 10 meq PO DAILY 05/05/17 [History] Pravastatin Sodium [Pravachol] 40 mg PO QPM 05/05/17 [History] Pregabalin [Lyrica] 100 mg PO BID 05/05/17 [History] Solifenacin Succinate [Vesicare] 5 mg PO DAILY 05/05/17 [History] Docusate [Colace] 100 mg PO BID capsule 05/06/17 [Rx] LORazepam [Ativan] 0.5 mg PO DAILY PRN #10 tablet 05/06/17 [Rx] Oxycodone HCl/Acetaminophen [Percocet 5-325 mg Tablet] 1 each PO Q4HR PRN #20 tablet 05/06/17 [Rx] Temazepam [Restoril] 15 mg PO HS PRN capsule 05/06/17 [Rx] Allergies/Adverse Reactions: 3 Allergy/AdvReac Type Severity Reaction Status Date / Time No Known Allergies Allergy Verified 05/05/17 11:15 Date of admission: 05/05/17 09:52 Primary care physician: Luis Armando Viera MD Consults: 05/05/17 19:45 Consult to Occupational Therapy [CONS] Routine Comment: Evaluate, develop and implement POC Reason for Consult: s/p left humerus orif Consult to Physical Therapy [CONS] Routine Comment: Evaluate, develop and implement POC Reason for Consult: s/p humerus ORIF Discharging clinician: Eddie Strange Anticipated date of discharge: 05/06/17 - Patient Status Disposition: Transfer Inpatient Rehab Fac Condition: Good Functional capacity at discharge: independent ambulation Overall status at discharge: patient is progressing back to baseline - Discharge Instructions Follow Up With: Luis Armando Viera MD [Primary Care Provider] - - Diet and Activity Activity: as per physical therapy, resume usual activities as tolerated Diet: low salt diet Interval History: See below Hospital course: Ms. Alvarez is a 81 year old female with PMH of HTN, who was transferred from outside facility for management of a Left humeral fracture following a mechanical fall. She had also reported prior recurrent falls She also has a PMH of osteoporosis ON evaluation, imaging revealed a closed Left humeral fracture, CBC and Chem were unremarkable. Her urine analysis was suspicious for UTI She was admitted and orthopedics was consulted She is s/p Left humeral Fracture POD 2 . Further imaging including a sacral and coccyx Xray as well as Lumbar spine Xray revealed no fractures. Her urine culture yielded no growth and she received Ceftriaxone daily for 3 days She sustained mild anemia from surgery but she is heodynamically and medically stable She is seen and evaluated at bedside with family this morning, no new complains Orthopedics is following From a medical stand point, she is clinically stable to be discharged for SNF/ Swing bed as recommended by [facility] Her blood pressure medications have been held since admission as blood pressure has been WNL Plan of care discused with family, verbalized understanding. - Time Spent with Patient Total time spent providing and/or coordinating discharge services: Greater than 30 minutes - Constitutional Vitals: Temp Pulse Resp BP Pulse Ox 97.5 F L 88 18 112/59 93 05/06/17 10:55 05/06/17 10:55 05/06/17 10:55 05/06/17 10:55 05/06/17 10:55 General appearance: Present: A&O X 3, pleasant, no acute distress - Head Head exam: Present: atraumatic, normocephalic - Eye Eye exam: Present: PERRL, conjuntiva pink, sclera anicteric Pupils: Present: PERRL - Neck Neck exam general surgery: Present: supple, trachea midline. Absent: lymphadenopathy - Respiratory Respiratory exam: Present: CTAB. Absent: accessory muscle use, rales, rhonchi, wheezes - Cardiovascular Cardiovascular exam: Present: RRR, +S1, +S2. Absent: diastolic murmur, gallop, rubs, systolic murmur - GI/Abdominal GI/Abdominal exam: Present: normal bowel sounds, soft, no peritoneal signs. Absent: distended, tenderness - Extremities Exam Extremities exam: Present: warm, radial pulses palpable and symmetrical. Absent : calf tenderness, cyanotic, pedal edema Additional comments: L arm and hand slighlty swollen Distal extremities well vascularized - Neurological Exam Neurological exam: Present: CN II-XII intact, oriented X3, no focal deficits. Absent: pronater drift, facial droop, speech deficit - Skin Skin exam: Present: dry, intact - VTE Documentation of Mechanical Device: Venous foot pump, device
--- NOTE | 2017-05-06 16:57 | Orthopedics Progress Note ---
Date of Encounter: 05/06/17 Time of Encounter: 13:20 - Assessment and Plan (1) Left humeral fracture Current Visit: Yes Status: Acute Postoperative day #2, stable Nonweightbearing to left upper extremity, continue brace which was adjusted today as she had her hand pointing down contributing to the swelling in hand. NSAIDs for low back pain Continue DVT prophylaxis Continue OT/PT Plan for discharge to [facility] Will follow up in [facility] office with Jerilyn Pino PA-C at [facility] Qualifiers: Encounter type: initial encounter Humerus Location: shaft Fracture type: closed Fracture morphology: unspecified fracture morphology Qualified Code(s ): S42.302A - Unspecified fracture of shaft of humerus, left arm, initial encounter for closed fracture Subjective Principal diagnosis: Left humerus fracture Interval history: Patient doing well, sitting up in chair beside bed. no events overnight. Denies any numbness or tingling to digits. Objective Vital signs: Vital Signs Temp Pulse Resp BP Pulse Ox 05/06/17 15:00 98.9 F 82 16 109/60 93 05/06/17 10:55 97.5 F L 88 18 112/59 93 05/06/17 06:27 98.3 F 88 18 118/76 94 05/06/17 03:48 98.6 F 94 22 126/74 93 05/06/17 00:45 98.6 F 92 18 125/72 92 05/05/17 19:56 99.1 F 89 17 111/61 91 Intake and Output 05/06/17 05/06/17 05/06/17 07:59 15:59 23:59 Intake Total 340 / 340 Output Total 150 / 150 Balance -150 / -150 340 / 340 Intake: Oral 340 / 340 Output: Urine 150 / 150 Other: Meal Lunch Percent of Meal Consumed 75% Incision: swollen (neutral wedge in place to LUE, moderate swelling to hand, decreased ROM of digits secondary to swelling. brisk cap refill, NV intact) - Labs CBC & BMP: 05/06/17 06:22 05/06/17 06:22 Labs: Abnormal lab results RBC 2.84 M/mcL (3.82-4.97) L 05/06/17 06:22 Hgb 9.0 g/dL (11.5-15.4) L 05/06/17 06:22 Hct 27.0 % (35.3-44.9) L 05/06/17 06:22 Plt Count 116 K/mcL (140-400) L 05/06/17 06:22 BUN/Creatinine Ratio 28 (6-26) H 05/06/17 06:22 Glucose 121 mg/dL (70-99) H 05/06/17 06:22 Urine Clarity Cloudy (Clear) A 05/03/17 13:54 Urine Blood Large (Negative) H 05/03/17 13:54 Ur Leukocyte Esterase Moderate (Negative) H 05/03/17 13:54 Urine Microscopic RBC TNTC per hpf (0-3) H 05/03/17 13:54 Urine Microscopic WBC 50-100 per hpf (0-3) H 05/03/17 13:54 Ur Squamous Epith Cells Moderate per lpf (None-Few) H 05/03/17 13:54 Urine Bacteria Moderate per hpf (None-Few) H 05/03/17 13:54 Ur Culture Indicated? YES (NO) A 05/03/17 13:54 - VTE Documentation of Mechanical Device: Venous foot pump, device Consult Discharge Plan - Plan Referrals: Luis Armando Viera MD [Primary Care Provider] - Prescriptions: Oxycodone HCl/Acetaminophen [Percocet 5-325 mg Tablet] 1 each PO Q4HR PRN #20 tablet PRN Reason: Pain LORazepam [Ativan] 0.5 mg PO DAILY PRN #10 tablet PRN Reason: Anxiety
--- NOTE | 2017-05-06 17:04 | Electrocardiograph Report ---
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
[2017-05-07 07:06] LABS: Basophils % 0.3 %; Eosinophils # 0.1 K/mcL (0.0-0.6); Eosinophils % 1.5 %; Hematocrit 26.4 % (35.3-44.9); Hemoglobin 8.6 g/dL (11.5-15.4); Immature Granulocytes % 0.7 % (0-4); Lymphocytes # 1.2 K/mcL (0.6-4.6); Lymphocytes % 20.1 %; Mean Corpuscular HGB Conc 32.6 g/dL (31.6-35.5); Mean Corpuscular Hemoglobin 31.5 pg (28.0-33.3); Mean Corpuscular Volume 96.7 fL (83.0-100.0); Monocytes # 0.5 K/mcL (0.0-1.3); Monocytes % 7.6 %; Neutrophils # 4.2 K/mcL (1.6-8.9); Platelet Count 118 K/mcL (140-400); Red Blood Count 2.73 M/mcL (3.82-4.97); Red Cell Distribution Width 13.4 % (11.5-14.5); Segmented Neutrophils % 69.8 %
[2017-05-07 07:20] LABS: BUN/Creatinine Ratio 26 (6-26); Blood Urea Nitrogen 17 mg/dL (7-20); Calcium 9.2 mg/dL (8.6-10.8); Carbon Dioxide 30 mEq/L (19-29); Chloride 103 mEq/L (98-109); Glucose 116 mg/dL (70-99); Osmolality,Calculated 291 (280-300); Potassium 3.8 mEq/L (3.5-4.5); Sodium 139 mEq/L (136-145); eGFR For African Americans > 60 (> 60); eGFR For Non-African Americans > 60 (> 60)
--- NOTE | 2017-05-07 08:47 | Internal Med Progress Note ---
<Martin Villeda - Last Filed: 05/07/17 10:32> Date of Encounter: 05/07/17 Time of Encounter: 08:15 - Assessment and plan (1) Left humeral fracture Current Visit: Yes Status: Acute Assessment and plan: - Status post left humerus open reduction internal fixation on 05/04/17. POD#3 - Continue pain control and DVT prophylaxis. - PT/OT recommended inpatient rehab/swing Bed. 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 Qualifiers: Encounter type: initial encounter Humerus Location: shaft Fracture type: closed Fracture morphology: unspecified fracture morphology Qualified Code(s ): S42.302A - Unspecified fracture of shaft of humerus, left arm, initial encounter for closed fracture (2) Acute blood loss as cause of postoperative anemia Current Visit: Yes Status: Acute Assessment and plan: - Hgb dropped to 9.7 on 05/05/17 (was 12.7 the day before). - Likely related to blood loss during surgery. - Hgb continued to drop with Hgb 8.6 today. - Patient is hemodynamically stable at this time but will continue to monitor H& H closely and consider pRBC transfusion if Hgb < 7. (3) HTN (hypertension) Current Visit: Yes Status: Chronic Assessment and plan: - BP within normal range. - Continue current antihypertensive regimen. Qualifiers: Hypertension type: essential hypertension Qualified Code(s): I10 - Essential (primary) hypertension (4) Hypokalemia Current Visit: Yes Status: Resolved Assessment and plan: - K 3.2 on 05/04/17. - Resolved as K 3.8 today. - Continue to monitor. (5) Abnormal urinalysis Current Visit: Yes Status: Resolved Assessment and plan: - UA on admission found large amount of blood and moderate leukocyte esterase. - Was on Ceftriaxone but discontinued after no growth on urine culture. (6) DVT prophylaxis Current Visit: Yes Status: Acute Assessment and plan: - Continue SQ Lovenox. - Subjective Interval history: Patient was seen and examined this morning. Patient reports left arm pain slightly better compared to yesterday but still has left hand swelling, numbness /tingling which are about the same as yesterday. Patient denies fever, chills, chest pain, shortness of breath, abdominal pain. - Constitutional Vitals: Temp Pulse Resp BP Pulse Ox 98.0 F 97 18 130/76 97 05/07/17 06:00 05/07/17 06:00 05/07/17 06:00 05/07/17 06:00 05/07/17 06:00 General appearance: Present: A&O X 3, pleasant, no acute distress - Head Head exam: Present: atraumatic, normocephalic - Eye Eye exam: Present: EOMI, conjuntiva pink, sclera anicteric - Neck Neck exam general surgery: Present: supple, trachea midline. Absent: lymphadenopathy - Respiratory Respiratory exam: Present: CTAB. Absent: accessory muscle use, rales, rhonchi, wheezes - Cardiovascular Cardiovascular exam: Present: RRR, +S1, +S2. Absent: diastolic murmur, gallop, rubs, systolic murmur - GI/Abdominal GI/Abdominal exam: Present: normal bowel sounds, soft, no peritoneal signs. Absent: distended, tenderness - Extremities Exam Extremities exam: Present: warm. Absent: cyanotic, pedal edema Additional comments: Left arm in sling/brace. Left hand swelling noted but patient can move and feel all the fingers. - Neurological Exam Neurological exam: Present: oriented X3, no focal deficits. Absent: facial droop, speech deficit - Skin Skin exam: Present: dry, warm Internal Medicine: Result - Labs CBC & Chem 7: 05/07/17 06:43 05/07/17 06:43 Labs: Short CBC 05/07/17 Range/Units 06:43 WBC 6.1 (4.3-11.1) K/mcL Hgb 8.6 L (11.5-15.4) g/dL Hct 26.4 L (35.3-44.9) % Plt Count 118 L (140-400) K/mcL Neutrophils # 4.2 (1.6-8.9) K/mcL BMP 05/07/17 06:43 Sodium 139 Potassium 3.8 Chloride 103 Carbon Dioxide 30 H BUN 17 Creatinine 0.66 Glucose 116 H Calcium 9.2 - VTE Documentation of Mechanical Device: Intermittent pneumatic compression device Consult Discharge Plan - Plan Referrals: Luis Armando Viera MD [Primary Care Provider] - Prescriptions: Oxycodone HCl/Acetaminophen [Percocet 5-325 mg Tablet] 1 each PO Q4HR PRN #20 tablet PRN Reason: Pain LORazepam [Ativan] 0.5 mg PO DAILY PRN #10 tablet PRN Reason: Anxiety <Dwayne Hadley - Last Filed: 05/07/17 16:52> Date of Encounter: 05/07/17 - Constitutional Vitals: Temp Pulse Resp BP Pulse Ox 98.1 F 100 18 104/57 95 05/07/17 14:19 05/07/17 14:19 05/07/17 14:19 05/07/17 14:19 05/07/17 14:19 Internal Medicine: Result - Labs CBC & Chem 7: 05/07/17 06:43 05/07/17 06:43 Labs: Short CBC 05/07/17 Range/Units 06:43 WBC 6.1 (4.3-11.1) K/mcL Hgb 8.6 L (11.5-15.4) g/dL Hct 26.4 L (35.3-44.9) % Plt Count 118 L (140-400) K/mcL Neutrophils # 4.2 (1.6-8.9) K/mcL BMP 05/07/17 06:43 Sodium 139 Potassium 3.8 Chloride 103 Carbon Dioxide 30 H BUN 17 Creatinine 0.66 Glucose 116 H Calcium 9.2 - Attending Attestation I conducted a face to face diagnostic evaluation of this patient and my medical decision-making was reviewed with the Resident Physician, Dr Martin Villeda. I agree with the documented findings, disposition and treatment plan as described except to the extent set forth below: Patient reports left shoulder moderate aching pain. On exam heart is regular, lungs are clear. There is left hand edema. Plan: Continue with postop care. Monitor hemoglobin and hematocrit. Discharge planning. All listed medical problems are new to me today. Dwayne Hadley MD
[2017-05-07] MEDS: Pregabalin 50 MG CAPSULE PO SCH ×2 (09:08→21:54)
[2017-05-07] MEDS: *HR* Enoxaparin 40 MG/0.4 ML SYRINGE SQ SCH (09:08)
[2017-05-07] MEDS: Loratadine 10 MG TABLET PO SCH (09:08)
[2017-05-07] MEDS: Mirabegron [Myrbetriq] 50 MG PO SCH (09:09)
[2017-05-07] MEDS: *HR* OxyCODONE Immed Rel 5 MG TABLET PO PRN ×3 (09:15→21:52)
--- NOTE | 2017-05-07 13:11 | Orthopedics Progress Note ---
Date of Encounter: 05/07/17 Time of Encounter: 12:45 - Assessment and Plan (1) Left humeral fracture Current Visit: Yes Status: Acute Postoperative day #3, stable Nonweightbearing to left upper extremity, continue in brace keeping hand upwards rather than hanging down. Adjusted brace again but this is likely the cause of her hand swelling. No pain or numbness/tingling at this time. Continue DVT prophylaxis Continue OT/PT Plan for discharge to [facility] tomorrow. Will follow up in [facility] office with Jerilyn Pino PA-C at [facility] Qualifiers: Encounter type: initial encounter Humerus Location: shaft Fracture type: closed Fracture morphology: unspecified fracture morphology Qualified Code(s ): S42.302A - Unspecified fracture of shaft of humerus, left arm, initial encounter for closed fracture Subjective Principal diagnosis: Left humerus fracture Interval history: Patient doing well, no events overnight. Denies any numbness or tingling to digits. States therapy worked with her today Objective Vital signs: Vital Signs Temp Pulse Resp BP Pulse Ox 05/07/17 11:13 98.4 F 98 16 117/76 92 05/07/17 06:00 98.0 F 97 18 130/76 97 05/07/17 04:11 98.6 F 71 137/80 97 05/06/17 23:43 98.2 F 90 17 126/66 99 05/06/17 19:48 98.4 F 98 17 143/80 97 05/06/17 15:00 98.9 F 82 16 109/60 93 Intake and Output 05/06/17 05/07/17 05/07/17 23:59 07:59 15:59 Intake Total 500 / 500 440 / 440 Output Total 250 / 250 25 / 25 Balance 250 / 250 415 / 415 Intake: Oral 500 / 500 440 / 440 Output: Urine 250 / 250 25 / 25 Other: Meal Dinner Lunch Percent of Meal Consumed 90% 90% Incision: clean and dry (dressings c/d/i, wearing slingshot brace, moderate swelling to hand, improved ROM of digits, brisk cap refill, NV intact) - Labs CBC & BMP: 05/07/17 06:43 05/07/17 06:43 Labs: Abnormal lab results RBC 2.73 M/mcL (3.82-4.97) L 05/07/17 06:43 Hgb 8.6 g/dL (11.5-15.4) L 05/07/17 06:43 Hct 26.4 % (35.3-44.9) L 05/07/17 06:43 Plt Count 118 K/mcL (140-400) L 05/07/17 06:43 Carbon Dioxide 30 mEq/L (19-29) H 05/07/17 06:43 Glucose 116 mg/dL (70-99) H 05/07/17 06:43 Urine Clarity Cloudy (Clear) A 05/03/17 13:54 Urine Blood Large (Negative) H 05/03/17 13:54 Ur Leukocyte Esterase Moderate (Negative) H 05/03/17 13:54 Urine Microscopic RBC TNTC per hpf (0-3) H 05/03/17 13:54 Urine Microscopic WBC 50-100 per hpf (0-3) H 05/03/17 13:54 Ur Squamous Epith Cells Moderate per lpf (None-Few) H 05/03/17 13:54 Urine Bacteria Moderate per hpf (None-Few) H 05/03/17 13:54 Ur Culture Indicated? YES (NO) A 05/03/17 13:54 - VTE Documentation of Mechanical Device: Intermittent pneumatic compression device Consult Discharge Plan - Plan Referrals: Luis Armando Viera MD [Primary Care Provider] - Prescriptions: Oxycodone HCl/Acetaminophen [Percocet 5-325 mg Tablet] 1 each PO Q4HR PRN #20 tablet PRN Reason: Pain LORazepam [Ativan] 0.5 mg PO DAILY PRN #10 tablet PRN Reason: Anxiety
[2017-05-08] MEDS: *HR* Enoxaparin 40 MG/0.4 ML SYRINGE SQ SCH (06:22)
[2017-05-08 06:40] LABS: Hematocrit 25.7 % (35.3-44.9); Hemoglobin 8.3 g/dL (11.5-15.4); Mean Corpuscular HGB Conc 32.3 g/dL (31.6-35.5); Mean Corpuscular Hemoglobin 31.4 pg (28.0-33.3); Mean Corpuscular Volume 97.3 fL (83.0-100.0); Mean Platelet Volume 9.9 fL (9.4-12.4); Platelet Count 125 K/mcL (140-400); Red Blood Count 2.64 M/mcL (3.82-4.97); Red Cell Distribution Width 13.5 % (11.5-14.5)
--- NOTE | 2017-05-08 09:08 | Internal Med Progress Note ---
<Martin Villeda - Last Filed: 05/08/17 09:11> Date of Encounter: 05/08/17 Time of Encounter: 08:45 - Assessment and plan (1) Left humeral fracture Status: Acute Assessment and plan: - Status post left humerus open reduction internal fixation on 05/04/17. POD#4 - Continue pain control and DVT prophylaxis. - PT/OT recommended inpatient rehab/swing bed. - Patient will be discharged to [place] swing bed today. Please see discharge summary done by Dr. Strange on 05/06/17 for more detail regarding the discharge. Qualifiers: Encounter type: initial encounter Humerus Location: shaft Fracture type: closed Fracture morphology: unspecified fracture morphology Qualified Code(s ): S42.302A - Unspecified fracture of shaft of humerus, left arm, initial encounter for closed fracture (2) Acute blood loss as cause of postoperative anemia Status: Acute Assessment and plan: - Hgb dropped to 9.7 on 05/05/17 (was 12.7 the day before). - Likely related to blood loss during surgery. - Relatively stable as Hgb only dropped slightly to Hgb 8.3 today (was 8.6 yesterday). - Patient is hemodynamically stable and no sign of active bleeding at this time. (3) HTN (hypertension) Status: Chronic Assessment and plan: - BP within normal range most of time. - Continue current antihypertensive regimen. Qualifiers: Hypertension type: essential hypertension Qualified Code(s): I10 - Essential (primary) hypertension (4) Hypokalemia Status: Resolved Assessment and plan: - K 3.2 on 05/04/17. - Resolved as latest K 3.8 on 05/07/17 (5) Abnormal urinalysis Status: Resolved Assessment and plan: - UA on admission found large amount of blood and moderate leukocyte esterase. - Was on Ceftriaxone but discontinued after no growth on urine culture. (6) DVT prophylaxis Status: Acute Assessment and plan: - Continue SQ Lovenox. - Subjective Interval history: Patient was seen and examined this morning. Patient still has left hand swelling but the numbness/tingling had resolved. Patient's left arm pain has been better-controlled. Patient denies fever, chills, chest pain, shortness of breath, abdominal pain. Patient denies hematochezia, melena, hematuria or other sign of active bleeding. - Constitutional Vitals: Temp Pulse Resp BP Pulse Ox 98.2 F 82 16 156/80 94 05/08/17 06:00 05/08/17 06:00 05/08/17 06:00 05/08/17 06:00 05/08/17 06:00 General appearance: Present: A&O X 3, pleasant, no acute distress - Head Head exam: Present: atraumatic, normocephalic - Eye Eye exam: Present: EOMI, conjuntiva pink, sclera anicteric - Neck Neck exam general surgery: Present: supple, trachea midline. Absent: lymphadenopathy - Respiratory Respiratory exam: Present: decreased breath sounds. Absent: accessory muscle use, rales, rhonchi, wheezes - Cardiovascular Cardiovascular exam: Present: RRR, +S1, +S2. Absent: diastolic murmur, gallop, rubs, systolic murmur - GI/Abdominal GI/Abdominal exam: Present: normal bowel sounds, soft, no peritoneal signs. Absent: distended, tenderness - Extremities Exam Extremities exam: Present: warm. Absent: cyanotic, pedal edema Additional comments: Left arm in sling/brace. Left hand swelling about the same as yesterday. Patient can move and feel all the fingers. - Neurological Exam Neurological exam: Present: oriented X3, no focal deficits. Absent: facial droop, speech deficit - Skin Skin exam: Present: dry, warm Internal Medicine: Result - Labs CBC & Chem 7: 05/08/17 06:28 05/07/17 06:43 Labs: Short CBC 05/08/17 Range/Units 06:28 WBC 3.8 L (4.3-11.1) K/mcL Hgb 8.3 L (11.5-15.4) g/dL Hct 25.7 L (35.3-44.9) % Plt Count 125 L (140-400) K/mcL - VTE Documentation of Mechanical Device: Intermittent pneumatic compression device Consult Discharge Plan - Plan Instructions: Open Reduction Internal Fixation (DC) Referrals: Luis Armando Viera MD [Primary Care Provider] - Prescriptions: Oxycodone HCl/Acetaminophen [Percocet 5-325 mg Tablet] 1 each PO Q4HR PRN #20 tablet PRN Reason: Pain Enoxaparin [Lovenox] 40 mg SQ DAILY #7 syr LORazepam [Ativan] 0.5 mg PO DAILY PRN #10 tablet PRN Reason: Anxiety <Dwayne Hadley - Last Filed: 05/08/17 17:58> Date of Encounter: 05/08/17 - Constitutional Vitals: Temp Pulse Resp BP Pulse Ox 98.4 F 76 18 148/76 95 05/08/17 10:02 05/08/17 10:02 05/08/17 10:02 05/08/17 10:02 05/08/17 10:02 Internal Medicine: Result - Labs CBC & Chem 7: 05/08/17 06:28 05/07/17 06:43 Labs: Short CBC 05/08/17 Range/Units 06:28 WBC 3.8 L (4.3-11.1) K/mcL Hgb 8.3 L (11.5-15.4) g/dL Hct 25.7 L (35.3-44.9) % Plt Count 125 L (140-400) K/mcL - Attending Attestation I conducted a face to face diagnostic evaluation of this patient and my medical decision-making was reviewed with the Resident Physician, Dr Martin Villeda. I agree with the documented findings, disposition and treatment plan as described except to the extent set forth below: LUE still swollen. Per patient no significant change from yesterday. She will need to continue DVT ppx at [facility] for at least 7 dasy then per [facility] director. Dwayne Hadley MD
[2017-05-08] MEDS: Loratadine 10 MG TABLET PO SCH (09:30)
[2017-05-08] MEDS: Pregabalin 50 MG CAPSULE PO SCH (09:30)
[2017-05-08] MEDS: Mirabegron [Myrbetriq] 50 MG PO SCH (09:31)
[2017-05-08 11:05] VITALS: BP 148/76
== END 2017-05-08 13:07 | DRG 493 ==
LOC: EMEROO 12:03 → SUATTDRO 15:28 → 3NENU 15:28 → INTOOBSV 15:28 → 3NENU 16:49 → SUATTDRO 05-05 09:52
PROVIDERS: ADMIT Internal Medicine; ATTEND Internal Medicine

== ENCOUNTER 2019-05-12 20:02 | Inpatient (IN) ==
[2019-05-12] MEDS ORDERED: Isovue-370 500 ML BOTTLE IVP ONE (23:52)
[2019-05-12] MEDS ORDERED: Albuterol 2.5 MG/3 ML NEBULIZER IH PRN (23:53)
[2019-05-12] MEDS ORDERED: Naloxone 0.4 MG/ML INJ IVP PRN (23:53)
[2019-05-13 01:07] LABS: Basophils % 0.5 %; Hematocrit 40.5 % (35.3-44.9); Hemoglobin 13.7 g/dL (11.5-15.4); Immature Granulocytes % 0.5 % (0-4); Lymphocytes # 0.8 K/mcL (0.6-4.6); Lymphocytes % 17.4 %; Mean Corpuscular HGB Conc 33.8 g/dL (31.6-35.5); Mean Corpuscular Hemoglobin 32.7 pg (28.0-33.3); Mean Corpuscular Volume 96.7 fL (83.0-100.0); Mean Platelet Volume 11.6 fL (9.4-12.4); Monocytes # 0.2 K/mcL (0.0-1.3); Monocytes % 5.3 %; Neutrophils # 3.4 K/mcL (1.6-8.9); Platelet Count 107 K/mcL (140-400); Red Blood Count 4.19 M/mcL (3.82-4.97); Red Cell Distribution Width 12.3 % (11.5-14.5); Segmented Neutrophils % 76.3 %; White Blood Count 4.4 K/mcL (4.3-11.1)
[2019-05-13 01:13] LABS: INR 1.1
[2019-05-13 01:25] LABS: Alanine Aminotransferase 10 Units/L (7-52); Albumin 3.7 g/dL (3.5-5.7); Albumin/Globulin Ratio 1.5 (1.1-2.2); Alkaline Phosphatase 44 Units/L (34-104); Aspartate Amino Transferase 16 Units/L (13-39); BUN/Creatinine Ratio 23 (6-26); Bilirubin,Total 0.9 mg/dL (0.3-1.0); Blood Urea Nitrogen 17 mg/dL (8-23); Calcium 9.5 mg/dL (8.6-10.3); Carbon Dioxide 32 mEq/L (23-29); Chloride 94 mEq/L (98-107); Chol/HDL Ratio 3.3 (0-4.9); Cholesterol 178 mg/dL (< 200); Globulin 2.5 g/dL (2.4-3.5); Glucose 205 mg/dL (70-105); HDL Cholesterol 54 mg/dL (40-59); LDL Cholesterol,Calculated 113 mg/dL (0-99); Magnesium 1.3 mg/dL (1.6-2.6); Osmolality,Calculated 285 (280-300); Phosphorous 3.6 mg/dL (2.7-4.5); Potassium 2.9 mEq/L (3.5-5.1); Sodium 134 mEq/L (136-145); Total Protein 6.2 g/dL (6.4-8.9); Triglycerides 55 mg/dL (< 150); eGFR For African Americans > 60 (> 60); eGFR For Non-African Americans > 60 (> 60)
[2019-05-13] MEDS ORDERED: Potassium Chloride Elixir 20 MEQ/15 ML UDC PO ONE ×2 (02:26→06:26)
[2019-05-13] MEDS ORDERED: *HR* Heparin 5,000 UNIT/ML VIAL IVP PRN (02:37)
[2019-05-13] MEDS ORDERED: Heparin 25,000 UNIT/250 ML D5W 25,000 UNIT/250 ML IV.SOLN IVC SCH (02:45)
[2019-05-13] MEDS ORDERED: MAGNESIUM SULFATE IVPB ONE (02:53)
[2019-05-13] MEDS ORDERED: SODIUM CHLORIDE 0.9% IVPB ONE (02:53)
[2019-05-13 03:27] LABS: Bilirubin,Urine Negative (Negative); Blood,Urine Trace (Negative); Clarity,Urine Clear (Clear); Color,Urine Yellow (Yellow); Glucose,Urine (UA) Normal (Normal); Ketones,Urine Trace mg/dL (Negative); Leukocyte Esterase,Urine Moderate (Negative); Nitrite,Urine Positive (Negative); Protein,Urine Negative (Neg-Trace); Specific Gravity,Urine 1.024 (1.010-1.025); Urobilinogen,Urine Normal (Normal)
[2019-05-13 03:29] LABS: Bacteria,Urine Many per hpf (None-Few); Hyaline Casts,Urine None Seen per lpf (None-Few); RBC,Urine 0-3 per hpf (0-3); Squamous Epithelial Cell,Urine Many per lpf (None-Few); WBC,Urine 15-30 per hpf (0-3)
[2019-05-13 03:35] LABS: Estimated Average Glucose 117 mg/dl
[2019-05-13] MEDS: Ipratropium/Albuterol Neb 3 ML IH SCH ×4 (04:38→22:45)
[2019-05-13 04:49] LABS: ABG Base Excess 7 mEq/L (-2 to 3); ABG HCO3 33 mEq/L (21-27); ABG Oxygen Saturation 92 % (95-98); ABG PCO2 52 mmHg (35-45); ABG PH 7.41 pH Units (7.32-7.45); ABG PO2 66 mmHg (85-104); ABG TCO2 35 mEq/L (20-26)
[2019-05-13] MEDS ORDERED: *HR* Heparin 5,000 UNIT/ML VIAL SQ SCH (06:00)
[2019-05-13 07:13] LABS: Troponin I 0.07 ng/mL (< 0.04)
[2019-05-13] MEDS ORDERED: D5% in Water 1,000 ML IVC PRN (08:08)
[2019-05-13] MEDS ORDERED: *HR* Dextrose 50 % in Water (Syg) 50 ML SYRINGE IVP PRN (08:08)
[2019-05-13] MEDS ORDERED: Dextrose Gel 15 GM/37.5 ML TUBE PO PRN ×2 (08:08)
[2019-05-13 08:37] LABS: Potassium 3.4 mEq/L (3.5-5.1)
[2019-05-13] MEDS ORDERED: Perflutren Lipid Microsphere 1.3 ML in 0.9 % Sodium Chloride 8.7 ML IVP ONE (09:08)
[2019-05-13] MEDS: Metoprolol XL (24 HR) Succ 25 MG TAB.ER.24H PO SCH (10:49)
[2019-05-13] MEDS: Pregabalin 75 MG CAPSULE PO SCH ×2 (10:49→20:27)
[2019-05-13] MEDS ORDERED: Insulin LISPRO 300 UNITS/3 ML VIAL SQ SCH (12:00)
[2019-05-13] MEDS ORDERED: Acetaminophen 325 MG TABLET PO PRN (14:49)
[2019-05-13] MEDS ORDERED: Ondansetron 4 MG/2 ML VIAL IVP PRN (14:50)
[2019-05-13] MEDS: Furosemide 20 MG/2 ML VIAL IVP SCH (18:48)
[2019-05-13] MEDS: *HR* Heparin 5,000 UNIT/ML VIAL SQ SCH (18:52)
[2019-05-13] MEDS ORDERED: Furosemide 40 MG/4 ML VIAL IVP SCH (21:00)
[2019-05-14] MEDS: Ipratropium/Albuterol Neb 3 ML IH SCH ×4 (04:46→22:34)
[2019-05-14] MEDS: *HR* Heparin 5,000 UNIT/ML VIAL SQ SCH ×2 (05:14→18:25)
[2019-05-14 06:33] LABS: BUN/Creatinine Ratio 37 (6-26); Blood Urea Nitrogen 31 mg/dL (8-23); Calcium 9.1 mg/dL (8.6-10.3); Carbon Dioxide 34 mEq/L (23-29); Chloride 98 mEq/L (98-107); Glucose 127 mg/dL (70-105); Magnesium 1.9 mg/dL (1.6-2.6); Osmolality,Calculated 300 (280-300); Phosphorous 2.1 mg/dL (2.7-4.5); Potassium 3.9 mEq/L (3.5-5.1); Sodium 141 mEq/L (136-145); eGFR For African Americans > 60 (> 60); eGFR For Non-African Americans > 60 (> 60)
[2019-05-14] MEDS ORDERED: Potassium Phosphate 44 MEQ in 0.9 % Sodium Chloride 250 ML IVPB ONE ×2 (07:22→11:45)
[2019-05-14] MEDS: Metoprolol XL (24 HR) Succ 25 MG TAB.ER.24H PO SCH (09:28)
[2019-05-14] MEDS: Pregabalin 75 MG CAPSULE PO SCH ×2 (09:29→20:52)
[2019-05-14] MEDS: Furosemide 20 MG/2 ML VIAL IVP SCH ×2 (09:30→18:25)
[2019-05-14] MEDS ORDERED: Azithromycin 250 MG TABLET PO SCH (16:30)
[2019-05-14] MEDS: predniSONE 20 MG TABLET PO SCH (18:24)
[2019-05-15] MEDS: Ipratropium/Albuterol Neb 3 ML IH SCH ×2 (03:49→11:37)
[2019-05-15 05:34] LABS: BUN/Creatinine Ratio 36 (6-26); Blood Urea Nitrogen 32 mg/dL (8-23); Calcium 8.5 mg/dL (8.6-10.3); Carbon Dioxide 31 mEq/L (23-29); Chloride 101 mEq/L (98-107); Glucose 160 mg/dL (70-105); Magnesium 1.7 mg/dL (1.6-2.6); Osmolality,Calculated 300 (280-300); Phosphorous 4.2 mg/dL (2.7-4.5); Potassium 3.6 mEq/L (3.5-5.1); Sodium 140 mEq/L (136-145); eGFR For African Americans > 60 (> 60); eGFR For Non-African Americans > 60 (> 60)
[2019-05-15] MEDS: *HR* Heparin 5,000 UNIT/ML VIAL SQ SCH (06:31)
[2019-05-15 07:20] VITALS: BP 103/66
[2019-05-15] MEDS: Pregabalin 75 MG CAPSULE PO SCH (10:31)
[2019-05-15] MEDS: predniSONE 20 MG TABLET PO SCH (10:31)
[2019-05-15] MEDS: Furosemide 20 MG/2 ML VIAL IVP SCH (10:32)
[2019-05-15] MEDS: Metoprolol XL (24 HR) Succ 25 MG TAB.ER.24H PO SCH (10:32)
== END 2019-05-15 14:00 | disposition home health service (06) | DRG 291 ==
LOC: 2NENU → SUATTDRO 21:05
PROVIDERS: ADMIT Internal Medicine; ATTEND Internal Medicine

== ENCOUNTER 2021-05-28 21:26 | Inpatient (IN) ==
[2021-05-29] MEDS ORDERED: Acetaminophen 325 MG TABLET PO PRN (00:39)
[2021-05-29] MEDS ORDERED: Naloxone 0.4 MG/ML INJ IVP PRN (00:39)
[2021-05-29] MEDS ORDERED: Melatonin 3 MG TABLET PO PRN (00:39)
[2021-05-29] MEDS ORDERED: D5% in Water 1,000 ML IVC PRN (01:48)
[2021-05-29] MEDS ORDERED: Dextrose Gel 15 GM/37.5 ML TUBE PO PRN ×2 (01:48)
[2021-05-29] MEDS ORDERED: *HR* Dextrose 50 % in Water (Syg) 50 ML SYRINGE IVP PRN (01:48)
[2021-05-29 02:22] LABS: Basophils % 0.5 %; Hematocrit 40.9 % (35.3-44.9); Immature Granulocytes % 0.3 % (0-4); Lymphocytes # 1.3 K/mcL (0.6-4.6); Lymphocytes % 21.3 %; Mean Corpuscular HGB Conc 31.8 g/dL (31.6-35.5); Mean Corpuscular Hemoglobin 29.2 pg (28.0-33.3); Mean Corpuscular Volume 91.9 fL (83.0-100.0); Mean Platelet Volume 10.6 fL (9.4-12.4); Monocytes # 0.4 K/mcL (0.0-1.3); Monocytes % 6.4 %; Neutrophils # 4.5 K/mcL (1.6-8.9); Platelet Count 157 K/mcL (140-400); Red Blood Count 4.45 M/mcL (3.82-4.97); Red Cell Distribution Width 14.1 % (11.5-14.5); Segmented Neutrophils % 71.5 %; White Blood Count 6.2 K/mcL (4.3-11.1)
[2021-05-29 02:32] LABS: INR 1.1; Prothrombin Time 12.4 Seconds (9.4-12.1)
[2021-05-29 02:40] LABS: BUN/Creatinine Ratio 18 (6-26); Blood Urea Nitrogen 11 mg/dL (8-23); Calcium 9.6 mg/dL (8.6-10.3); Carbon Dioxide 28 mEq/L (23-29); Chloride 100 mEq/L (98-107); Glucose 114 mg/dL (70-105); Magnesium 1.4 mg/dL (1.6-2.6); Osmolality,Calculated 292 (280-300); Phosphorous 3.2 mg/dL (2.7-4.5); Potassium 3.3 mEq/L (3.5-5.1); Sodium 141 mEq/L (136-145); eGFR For African Americans > 60 (> 60); eGFR For Non-African Americans > 60 (> 60)
[2021-05-29] MEDS ORDERED: Ipratropium/Albuterol Neb 3 ML IH PRN (04:28)
[2021-05-29] MEDS ORDERED: Perflutren Lipid Microsphere 1.3 ML in 0.9 % Sodium Chloride 8.7 ML IVP PRN (04:30)
[2021-05-29] MEDS: *HR* Enoxaparin 40 MG/0.4 ML SYRINGE SQ SCH (05:15)
[2021-05-29 05:53] LABS: Chol/HDL Ratio 2.5 (0-4.9); Cholesterol 153 mg/dL (< 200); HDL Cholesterol 62 mg/dL (40-59); LDL Cholesterol,Calculated 74 mg/dL (< 100); Triglycerides 85 mg/dL (< 150)
[2021-05-29 06:05] LABS: Thyroid Stimulating Hormone 2.763 mcIU/mL (0.340-5.600)
[2021-05-29 06:13] LABS: Estimated Average Glucose 114 mg/dl; Hemoglobin A1C 5.6 %
[2021-05-29] MEDS: Budesonide/Formoterol 160/4.5 1 PUFF INH IH SCH ×2 (07:59→19:54)
[2021-05-29] MEDS: Multivit/Ca/Min/Fe/FA 1 TAB TABLET PO SCH (08:30)
[2021-05-29] MEDS: Lactobacillus 1 EACH CAP.SPRINK PO SCH ×2 (08:30→19:49)
[2021-05-29] MEDS: Aspirin 81 MG TAB.CHEW PO SCH (08:30)
[2021-05-29] MEDS: cefTRIAXone 1,000 MG in 0.9 % Sodium Chloride Mini Bag 100 ML IVPB SCH (08:30)
[2021-05-29] MEDS: amLODIPine 5 MG TABLET PO SCH (08:31)
[2021-05-29] MEDS: Chlorhexidine Rinse 15 ML MOUTHWASH MM SCH ×2 (08:31→19:49)
[2021-05-30] MEDS: *HR* Enoxaparin 40 MG/0.4 ML SYRINGE SQ SCH (05:42)
[2021-05-30] MEDS: Budesonide/Formoterol 160/4.5 1 PUFF INH IH SCH ×2 (07:18→19:44)
[2021-05-30 08:12] LABS: Basophils % 0.4 %; Eosinophils # 0.1 K/mcL (0.0-0.6); Eosinophils % 1.2 %; Hemoglobin 12.6 g/dL (11.5-15.4); Immature Granulocytes % 0.4 % (0-4); Lymphocytes # 1.3 K/mcL (0.6-4.6); Mean Corpuscular HGB Conc 32.3 g/dL (31.6-35.5); Mean Corpuscular Hemoglobin 30.3 pg (28.0-33.3); Mean Corpuscular Volume 93.8 fL (83.0-100.0); Mean Platelet Volume 10.9 fL (9.4-12.4); Monocytes # 0.4 K/mcL (0.0-1.3); Monocytes % 6.9 %; Neutrophils # 3.9 K/mcL (1.6-8.9); Platelet Count 154 K/mcL (140-400); Red Blood Count 4.16 M/mcL (3.82-4.97); Red Cell Distribution Width 14.5 % (11.5-14.5); Segmented Neutrophils % 68.1 %; White Blood Count 5.7 K/mcL (4.3-11.1)
[2021-05-30] MEDS ORDERED: polyethylene glycoL 3350 17 GM POWD.PACK PO PRN (08:26)
[2021-05-30 08:38] LABS: BUN/Creatinine Ratio 26 (6-26); Blood Urea Nitrogen 17 mg/dL (8-23); Calcium 9.6 mg/dL (8.6-10.3); Carbon Dioxide 31 mEq/L (23-29); Chloride 104 mEq/L (98-107); Glucose 104 mg/dL (70-105); Osmolality,Calculated 294 (280-300); Potassium 3.4 mEq/L (3.5-5.1); Sodium 141 mEq/L (136-145); eGFR For African Americans > 60 (> 60); eGFR For Non-African Americans > 60 (> 60)
[2021-05-30] MEDS: Chlorhexidine Rinse 15 ML MOUTHWASH MM SCH ×2 (09:28→20:41)
[2021-05-30] MEDS: amLODIPine 5 MG TABLET PO SCH (09:28)
[2021-05-30] MEDS: Lactobacillus 1 EACH CAP.SPRINK PO SCH ×2 (09:28→20:41)
[2021-05-30] MEDS: cefTRIAXone 1,000 MG in 0.9 % Sodium Chloride Mini Bag 100 ML IVPB SCH (09:28)
[2021-05-30] MEDS: Pregabalin 75 MG CAPSULE PO SCH ×2 (09:28→20:41)
[2021-05-30] MEDS: Aspirin 81 MG TAB.CHEW PO SCH (09:28)
[2021-05-30] MEDS: Magnesium Oxide 400 MG TABLET PO SCH (09:28)
[2021-05-30] MEDS: Multivit/Ca/Min/Fe/FA 1 TAB TABLET PO SCH (09:28)
[2021-05-30] MEDS: Patient Taking Own Medication 1 EACH PO SCH (09:29)
[2021-05-31] MEDS: *HR* Enoxaparin 40 MG/0.4 ML SYRINGE SQ SCH (05:46)
[2021-05-31 06:10] LABS: Basophils % 0.5 %; Eosinophils # 0.1 K/mcL (0.0-0.6); Eosinophils % 2.1 %; Hematocrit 38.4 % (35.3-44.9); Hemoglobin 12.4 g/dL (11.5-15.4); Immature Granulocytes % 0.3 % (0-4); Lymphocytes # 1.6 K/mcL (0.6-4.6); Lymphocytes % 24.8 %; Mean Corpuscular HGB Conc 32.3 g/dL (31.6-35.5); Mean Corpuscular Hemoglobin 30.5 pg (28.0-33.3); Mean Corpuscular Volume 94.6 fL (83.0-100.0); Monocytes # 0.5 K/mcL (0.0-1.3); Platelet Count 158 K/mcL (140-400); Red Blood Count 4.06 M/mcL (3.82-4.97); Red Cell Distribution Width 14.7 % (11.5-14.5); Segmented Neutrophils % 64.3 %; White Blood Count 6.3 K/mcL (4.3-11.1)
[2021-05-31 06:24] LABS: BUN/Creatinine Ratio 34 (6-26); Blood Urea Nitrogen 24 mg/dL (8-23); Calcium 9.5 mg/dL (8.6-10.3); Carbon Dioxide 32 mEq/L (23-29); Chloride 105 mEq/L (98-107); Glucose 107 mg/dL (70-105); Osmolality,Calculated 297 (280-300); Sodium 141 mEq/L (136-145); eGFR For African Americans > 60 (> 60); eGFR For Non-African Americans > 60 (> 60)
[2021-05-31] MEDS: Budesonide/Formoterol 160/4.5 1 PUFF INH IH SCH (07:27)
[2021-05-31] MEDS: Magnesium Oxide 400 MG TABLET PO SCH (07:56)
[2021-05-31] MEDS: cefTRIAXone 1,000 MG in 0.9 % Sodium Chloride Mini Bag 100 ML IVPB SCH (07:57)
[2021-05-31] MEDS: amLODIPine 5 MG TABLET PO SCH (07:57)
[2021-05-31] MEDS: Lactobacillus 1 EACH CAP.SPRINK PO SCH (07:57)
[2021-05-31] MEDS: Aspirin 81 MG TAB.CHEW PO SCH (07:57)
[2021-05-31] MEDS: Multivit/Ca/Min/Fe/FA 1 TAB TABLET PO SCH (07:57)
[2021-05-31] MEDS: Pregabalin 75 MG CAPSULE PO SCH (07:57)
[2021-05-31] MEDS: Chlorhexidine Rinse 15 ML MOUTHWASH MM SCH (07:57)
[2021-05-31] MEDS: Patient Taking Own Medication 1 EACH PO SCH (07:58)
[2021-05-31 10:32] VITALS: BP 115/62; PULSE 56; TEMP 97.4; O2SAT 98
== END 2021-05-31 12:46 | disposition home health service (06) | DRG 281 ==
LOC: 3BNU → SUATTDRO 23:39
PROVIDERS: ADMIT Internal Medicine; ATTEND Internal Medicine

== ENCOUNTER 2021-12-14 15:21 | Inpatient (IN) ==
[2021-12-14] MEDS ORDERED: Ondansetron ODT 4 MG TAB.RAPDIS SL PRN (18:04)
[2021-12-14] MEDS ORDERED: Ketorolac 30 MG/ML VIAL IVP PRN (18:04)
[2021-12-14] MEDS ORDERED: Naloxone 0.4 MG/ML INJ IVP PRN (18:04)
[2021-12-14] MEDS ORDERED: Melatonin 3 MG TABLET PO PRN (18:04)
[2021-12-15 05:59] LABS: Basophils % 0.3 %; Eosinophils # 0.2 K/mcL (0.0-0.6); Eosinophils % 2.5 %; Hematocrit 35.9 % (35.3-44.9); Hemoglobin 11.3 g/dL (11.5-15.4); Immature Granulocytes % 0.2 % (0-4); Lymphocytes # 1.1 K/mcL (0.6-4.6); Lymphocytes % 16.5 %; Mean Corpuscular HGB Conc 31.5 g/dL (31.6-35.5); Mean Corpuscular Hemoglobin 30.8 pg (28.0-33.3); Mean Corpuscular Volume 97.8 fL (83.0-100.0); Mean Platelet Volume 10.7 fL (9.4-12.4); Monocytes # 0.5 K/mcL (0.0-1.3); Monocytes % 7.3 %; Neutrophils # 4.7 K/mcL (1.6-8.9); Platelet Count 101 K/mcL (140-400); Red Blood Count 3.67 M/mcL (3.82-4.97); Red Cell Distribution Width 13.6 % (11.5-14.5); Segmented Neutrophils % 73.2 %; White Blood Count 6.4 K/mcL (4.3-11.1)
[2021-12-15 06:19] LABS: Alanine Aminotransferase 8 Units/L (7-52); Albumin 3.3 g/dL (3.5-5.7); Albumin/Globulin Ratio 1.7 (1.1-2.2); Alkaline Phosphatase 56 Units/L (34-104); Aspartate Amino Transferase 12 Units/L (13-39); BUN/Creatinine Ratio 27 (6-26); Bilirubin,Total 0.6 mg/dL (0.3-1.0); Blood Urea Nitrogen 20 mg/dL (8-23); Calcium 8.8 mg/dL (8.6-10.3); Carbon Dioxide 26 mEq/L (23-29); Chloride 105 mEq/L (98-107); Globulin 1.9 g/dL (2.4-3.5); Glucose 118 mg/dL (70-105); Osmolality,Calculated 286 (280-300); Sodium 136 mEq/L (136-145); Total Protein 5.2 g/dL (6.4-8.9); eGFR For African Americans > 60 (> 60); eGFR For Non-African Americans > 60 (> 60)
[2021-12-15] MEDS ORDERED: Acetaminophen 325 MG TABLET PO PRN (07:16)
[2021-12-15] MEDS ORDERED: amLODIPine 5 MG TABLET PO SCH (09:00)
[2021-12-15] MEDS: Pregabalin 75 MG CAPSULE PO SCH ×2 (09:59→22:00)
[2021-12-15] MEDS: Aspirin Enteric Coated 325 MG Tablet PO SCH (09:59)
[2021-12-15] MEDS ORDERED: CeFAZolin Syr 2,000MG/20 ML 2,000 MG/20 ML SYRINGE IVPB ONE (10:51)
[2021-12-15] MEDS ORDERED: Ringers Solution, Lactated 1,000 ML IVC SCH (11:00)
[2021-12-15] MEDS ORDERED: Ondansetron 4 MG/2 ML VIAL ONE (12:31)
[2021-12-15] MEDS ORDERED: *HR* Rocuronium Bromide 50 MG/5 ML VIAL ONE (12:31)
[2021-12-15] MEDS ORDERED: Lidocaine -MPF 2% 5 ML VIAL ONE (12:31)
[2021-12-15] MEDS ORDERED: *HR* FentaNYL (PF) 100 MCG/2 ML VIAL ONE (12:31)
[2021-12-15] MEDS ORDERED: EPHEDrine 50 MG/ML VIAL ONE (13:25)
[2021-12-15] MEDS ORDERED: Sugammadex Sodium 200 MG/2 ML VIAL IV ONE (13:55)
[2021-12-15] MEDS: *HR* FentaNYL (PF) 100 MCG/2 ML VIAL IVP PRN ×2 (15:43→15:55)
[2021-12-15] MEDS ORDERED: Ipratropium/Albuterol Neb 3 ML IH PRN (15:49)
[2021-12-15] MEDS: CeFAZolin 2 GM/120 ML BAG IVPB SCH (22:00)
[2021-12-16] MEDS: CeFAZolin 2 GM/120 ML BAG IVPB SCH (05:11)
[2021-12-16] MEDS: Pregabalin 75 MG CAPSULE PO SCH ×2 (08:38→19:55)
[2021-12-16] MEDS: Aspirin Enteric Coated 325 MG Tablet PO SCH (08:39)
[2021-12-16 13:08] LABS: Hematocrit 28.4 % (35.3-44.9)
[2021-12-16 13:10] LABS: Basophils % 0.2 %; Monocytes % 8.5 %
[2021-12-16 13:12] LABS: Eosinophils # 0.1 K/mcL (0.0-0.6); Eosinophils % 0.5 %; Hematocrit 28.8 % (35.3-44.9); Hemoglobin 9.2 g/dL (11.5-15.4); Immature Granulocytes % 0.5 % (0-4); Immature Platelets 6.6 % (1.1-6.1); Lymphocytes # 1.3 K/mcL (0.6-4.6); Lymphocytes % 14.2 %; Mean Corpuscular HGB Conc 31.9 g/dL (31.6-35.5); Mean Corpuscular Hemoglobin 31.4 pg (28.0-33.3); Mean Corpuscular Volume 98.3 fL (83.0-100.0); Mean Platelet Volume 11.4 fL (9.4-12.4); Monocytes # 0.8 K/mcL (0.0-1.3); Platelet Count 132 K/mcL (140-400); Red Blood Count 2.93 M/mcL (3.82-4.97); Red Cell Distribution Width 13.8 % (11.5-14.5); Segmented Neutrophils % 76.1 %; White Blood Count 9.2 K/mcL (4.3-11.1)
[2021-12-16 13:16] LABS: Hemoglobin 9.2 g/dL (11.5-15.4)
[2021-12-16 13:39] LABS: BUN/Creatinine Ratio 25 (6-26); Blood Urea Nitrogen 18 mg/dL (8-23); Carbon Dioxide 29 mEq/L (23-29); Chloride 102 mEq/L (98-107); Glucose 143 mg/dL (70-105); Magnesium 1.6 mg/dL (1.6-2.6); Osmolality,Calculated 284 (280-300); Potassium 4.6 mEq/L (3.5-5.1); Sodium 135 mEq/L (136-145); eGFR For African Americans > 60 (> 60); eGFR For Non-African Americans > 60 (> 60)
[2021-12-16] MEDS: Iron Sucrose Complex 250 MG in 0.9 % Sodium Chloride 250 ML IVPB SCH (19:57)
[2021-12-16] MEDS: Cyanocobalamin (B-12) 1,000 MCG/ML VIAL SQ SCH (20:04)
[2021-12-17 04:45] LABS: Immature Granulocytes % 0.6 % (0-4)
[2021-12-17 04:47] LABS: Basophils % 0.4 %; Eosinophils # 0.1 K/mcL (0.0-0.6); Eosinophils % 2.4 %; Hematocrit 23.3 % (35.3-44.9); Hemoglobin 7.5 g/dL (11.5-15.4); Lymphocytes # 0.9 K/mcL (0.6-4.6); Lymphocytes % 17.5 %; Mean Corpuscular HGB Conc 32.2 g/dL (31.6-35.5); Mean Corpuscular Hemoglobin 31.8 pg (28.0-33.3); Mean Corpuscular Volume 98.7 fL (83.0-100.0); Mean Platelet Volume 11.5 fL (9.4-12.4); Monocytes # 0.4 K/mcL (0.0-1.3); Monocytes % 7.3 %; Neutrophils # 3.8 K/mcL (1.6-8.9); Red Blood Count 2.36 M/mcL (3.82-4.97); Red Cell Distribution Width 13.8 % (11.5-14.5); Segmented Neutrophils % 71.8 %; White Blood Count 5.3 K/mcL (4.3-11.1)
[2021-12-17 05:05] LABS: BUN/Creatinine Ratio 26 (6-26); Blood Urea Nitrogen 16 mg/dL (8-23); Calcium 8.5 mg/dL (8.6-10.3); Carbon Dioxide 31 mEq/L (23-29); Chloride 101 mEq/L (98-107); Glucose 116 mg/dL (70-105); Magnesium 1.5 mg/dL (1.6-2.6); Osmolality,Calculated 278 (280-300); Sodium 133 mEq/L (136-145); eGFR For African Americans > 60 (> 60); eGFR For Non-African Americans > 60 (> 60)
[2021-12-17 05:08] LABS: Platelet Count 89 K/mcL (140-400)
[2021-12-17] MEDS: Aspirin Enteric Coated 325 MG Tablet PO SCH (08:39)
[2021-12-17] MEDS: Pregabalin 75 MG CAPSULE PO SCH ×2 (08:39→20:50)
[2021-12-17] MEDS: Cyanocobalamin (B-12) 1,000 MCG/ML VIAL SQ SCH (08:41)
[2021-12-17] MEDS: Iron Sucrose Complex 250 MG in 0.9 % Sodium Chloride 250 ML IVPB SCH (11:33)
[2021-12-18 05:56] LABS: Basophils % 0.3 %; Eosinophils # 0.2 K/mcL (0.0-0.6); Eosinophils % 2.4 %; Hematocrit 23.9 % (35.3-44.9); Hemoglobin 7.6 g/dL (11.5-15.4); Lymphocytes # 1.3 K/mcL (0.6-4.6); Lymphocytes % 20.9 %; Mean Corpuscular HGB Conc 31.8 g/dL (31.6-35.5); Mean Corpuscular Hemoglobin 31.5 pg (28.0-33.3); Mean Corpuscular Volume 99.2 fL (83.0-100.0); Mean Platelet Volume 11.4 fL (9.4-12.4); Monocytes # 0.5 K/mcL (0.0-1.3); Neutrophils # 4.2 K/mcL (1.6-8.9); Platelet Count 113 K/mcL (140-400); Red Blood Count 2.41 M/mcL (3.82-4.97); Red Cell Distribution Width 14.1 % (11.5-14.5); Segmented Neutrophils % 67.4 %; White Blood Count 6.3 K/mcL (4.3-11.1)
[2021-12-18 06:15] LABS: BUN/Creatinine Ratio 24 (6-26); Blood Urea Nitrogen 13 mg/dL (8-23); Calcium 8.7 mg/dL (8.6-10.3); Carbon Dioxide 32 mEq/L (23-29); Chloride 103 mEq/L (98-107); Glucose 117 mg/dL (70-105); Magnesium 1.8 mg/dL (1.6-2.6); Osmolality,Calculated 285 (280-300); Potassium 4.4 mEq/L (3.5-5.1); Sodium 137 mEq/L (136-145); eGFR For African Americans > 60 (> 60); eGFR For Non-African Americans > 60 (> 60)
[2021-12-18] MEDS: Aspirin Enteric Coated 325 MG Tablet PO SCH (09:28)
[2021-12-18] MEDS: Pregabalin 75 MG CAPSULE PO SCH (09:28)
[2021-12-18 12:05] VITALS: TEMP 98.1
[2021-12-18 16:01] LABS: Adenovirus Not Detected (Not Detect); Bordetella Pertussis Not Detected (Not Detect); Chlamydophila pneumoniae Not Detected (Not Detect); Coronavirus 229E Not Detected (Not Detect); Coronavirus HKU1 Not Detected (Not Detect); Coronavirus NL63 Not Detected (Not Detect); Coronavirus OC43 Not Detected (Not Detect); Human Metapneumovirus Not Detected (Not Detect); Human Rhinovirus/Enterovirus Not Detected (Not Detect); Influenza A Subtype 2009 H1 Not Detected (Not Detect); Influenza B Not Detected (Not Detect); Mycoplasma pneumoniae Not Detected (Not Detect); Parainfluenza Virus 1 Not Detected (Not Detect); Parainfluenza Virus 2 Not Detected (Not Detect); Parainfluenza Virus 3 Not Detected (Not Detect); Parainfluenza Virus 4 Not Detected (Not Detect); Respiratory Syncytial Virus Not Detected (Not Detect); SARS-CoV-2 Not Detected (Not Detect)
[2021-12-18 16:36] VITALS: BP 106/65; PULSE 55; O2SAT 99
== END 2021-12-18 17:30 | DRG 481 ==
LOC: 4WAOSI → SUATTDRO 16:54
PROVIDERS: ADMIT Family Medicine; ATTEND Pharmacist

== ENCOUNTER 2022-01-15 01:28 | Inpatient (IN) ==
[2022-01-15] MEDS ORDERED: Naloxone 0.4 MG/ML INJ IVP PRN (04:56)
[2022-01-15] MEDS: Ipratropium/Albuterol Neb 3 ML IH SCH ×4 (05:47→21:25)
[2022-01-15 05:51] LABS: VBG HCO3 29 mEq/L (21-27); VBG PCO2 43 mmHg (41-51); VBG PH 7.43 pH Units (7.32-7.42); VBG PO2 49 mmHg (25-50)
[2022-01-15 05:52] LABS: Basophils % 0.3 %; Hematocrit 37.8 % (35.3-44.9); Hemoglobin 11.7 g/dL (11.5-15.4); Immature Granulocytes % 1.1 % (0-4); Immature Platelets 6.2 % (1.1-6.1); Lymphocytes # 0.4 K/mcL (0.6-4.6); Lymphocytes % 3.7 %; Mean Corpuscular Hemoglobin 31.6 pg (28.0-33.3); Mean Corpuscular Volume 102.2 fL (83.0-100.0); Mean Platelet Volume 11.3 fL (9.4-12.4); Monocytes # 0.4 K/mcL (0.0-1.3); Monocytes % 3.9 %; Neutrophils # 10.2 K/mcL (1.6-8.9); Platelet Count 106 K/mcL (140-400); Red Cell Distribution Width 15.8 % (11.5-14.5); White Blood Count 11.2 K/mcL (4.3-11.1)
[2022-01-15] MEDS ORDERED: *HR* Enoxaparin 40 MG/0.4 ML SYRINGE SQ SCH (06:00)
[2022-01-15] MEDS ORDERED: *HR* Heparin 5,000 UNIT/ML VIAL IVP PRN (06:12)
[2022-01-15] MEDS ORDERED: methylPREDNISolone 125 MG/2 ML VIAL IVP SCH (06:15)
[2022-01-15 06:17] LABS: Albumin 3.3 g/dL (3.5-5.7); Albumin/Globulin Ratio 1.5 (1.1-2.2); Bilirubin,Total 0.7 mg/dL (0.3-1.0); Calcium 9.2 mg/dL (8.6-10.3); Globulin 2.2 g/dL (2.4-3.5); Magnesium 1.5 mg/dL (1.6-2.6); Phosphorous 2.3 mg/dL (2.7-4.5); Potassium 3.5 mEq/L (3.5-5.1); Total Protein 5.5 g/dL (6.4-8.9)
[2022-01-15 06:36] LABS: Adenovirus Not Detected (Not Detect); Bordetella Pertussis Not Detected (Not Detect); Chlamydophila pneumoniae Not Detected (Not Detect); Coronavirus 229E Not Detected (Not Detect); Coronavirus HKU1 Not Detected (Not Detect); Coronavirus NL63 Not Detected (Not Detect); Coronavirus OC43 Not Detected (Not Detect); Human Metapneumovirus Not Detected (Not Detect); Human Rhinovirus/Enterovirus Not Detected (Not Detect); Influenza A Subtype 2009 H1 Not Detected (Not Detect); Influenza B Not Detected (Not Detect); Mycoplasma pneumoniae Not Detected (Not Detect); Parainfluenza Virus 1 Not Detected (Not Detect); Parainfluenza Virus 2 Not Detected (Not Detect); Parainfluenza Virus 3 Not Detected (Not Detect); Parainfluenza Virus 4 Not Detected (Not Detect); Respiratory Syncytial Virus Not Detected (Not Detect); SARS-CoV-2 Not Detected (Not Detect)
[2022-01-15] MEDS: Heparin 25,000UNIT/250ML 1/2NS 25,000 UNIT/250 ML IV.SOLN IVC SCH (07:08)
[2022-01-15] MEDS: *HR* Heparin 5,000 UNIT/ML VIAL IVP PRN ×3 (07:09→22:21)
[2022-01-15] MEDS ORDERED: Potassium Phosphate 44 MEQ in 0.9 % Sodium Chloride 250 ML IVPB ONE (07:42)
[2022-01-15 10:22] LABS: Basophils % 0.1 %
[2022-01-15 10:24] LABS: Hematocrit 37.1 % (35.3-44.9); Hemoglobin 11.8 g/dL (11.5-15.4); Immature Granulocytes % 0.8 % (0-4); Immature Platelets 5.4 % (1.1-6.1); Lymphocytes # 0.3 K/mcL (0.6-4.6); Lymphocytes % 3.1 %; Mean Corpuscular HGB Conc 31.8 g/dL (31.6-35.5); Mean Corpuscular Hemoglobin 32.2 pg (28.0-33.3); Mean Corpuscular Volume 101.1 fL (83.0-100.0); Mean Platelet Volume 11.7 fL (9.4-12.4); Monocytes # 0.1 K/mcL (0.0-1.3); Monocytes % 1.3 %; Neutrophils # 9.5 K/mcL (1.6-8.9); Platelet Count 110 K/mcL (140-400); Red Blood Count 3.67 M/mcL (3.82-4.97); Red Cell Distribution Width 15.6 % (11.5-14.5); Segmented Neutrophils % 94.7 %
[2022-01-15 10:42] LABS: BUN/Creatinine Ratio 31 (6-26); Blood Urea Nitrogen 16 mg/dL (8-23); Carbon Dioxide 30 mEq/L (23-29); Chloride 103 mEq/L (98-107); Glucose 167 mg/dL (70-105); Osmolality,Calculated 297 (280-300); Potassium 3.5 mEq/L (3.5-5.1); Sodium 141 mEq/L (136-145)
[2022-01-15 10:48] LABS: Heparin anti-factor XA UFH 0.21 IU/mL (0.30-0.70); INR 1.4; Prothrombin Time 15.6 Seconds (9.4-12.1)
[2022-01-15] MEDS: Levothyroxine 25 MCG TABLET PO SCH (12:10)
[2022-01-15] MEDS: Nystatin SUSP 5 ML UD.LIQ PO SCH ×3 (12:22→20:22)
[2022-01-15] MEDS ORDERED: Albuterol 2.5 MG/3 ML NEBULIZER IH PRN (13:24)
[2022-01-15] MEDS: Piperacillin/Tazobactam 3.375 GM in 0.9 % Sodium Chloride Mini Bag 100 ML IVPB SCH ×2 (16:11→23:49)
[2022-01-15] MEDS: MethylPREDNISolone 40 MG/ML VIAL IVP SCH (17:34)
[2022-01-15] MEDS: Furosemide 20 MG/2 ML VIAL IVP SCH (17:35)
[2022-01-15] MEDS ORDERED: Azithromycin 500 MG in 0.9 % Sodium Chloride 250 ML IVPB SCH (20:00)
[2022-01-15] MEDS ORDERED: cefTRIAXone 1,000 MG in Water for inj. (sterile) 10 ML IVP SCH (20:00)
[2022-01-15 21:33] LABS: VBG Ionized Calcium 1.18 mmol/L (1.15-1.35)
[2022-01-15 21:51] LABS: Magnesium 1.4 mg/dL (1.6-2.6); Phosphorous 1.7 mg/dL (2.7-4.5)
[2022-01-16] MEDS: Ipratropium/Albuterol Neb 3 ML IH SCH ×2 (04:06→10:08)
[2022-01-16 04:57] LABS: VBG Ionized Calcium 1.17 mmol/L (1.15-1.35)
[2022-01-16 05:07] LABS: Platelet Count 132 K/mcL (140-400); Red Cell Distribution Width 15.3 % (11.5-14.5)
[2022-01-16 05:10] LABS: Hematocrit 33.1 % (35.3-44.9); Hemoglobin 10.7 g/dL (11.5-15.4); Immature Granulocytes % 0.6 % (0-4); Immature Platelets 5.8 % (1.1-6.1); Lymphocytes # 0.4 K/mcL (0.6-4.6); Lymphocytes % 4.3 %; Mean Corpuscular HGB Conc 32.3 g/dL (31.6-35.5); Mean Corpuscular Hemoglobin 32.1 pg (28.0-33.3); Mean Corpuscular Volume 99.4 fL (83.0-100.0); Mean Platelet Volume 11.5 fL (9.4-12.4); Monocytes # 0.4 K/mcL (0.0-1.3); Monocytes % 4.9 %; Red Blood Count 3.33 M/mcL (3.82-4.97); Segmented Neutrophils % 90.2 %; White Blood Count 8.9 K/mcL (4.3-11.1)
[2022-01-16] MEDS: MethylPREDNISolone 40 MG/ML VIAL IVP SCH ×2 (05:10→17:35)
[2022-01-16 05:22] LABS: Magnesium 1.4 mg/dL (1.6-2.6)
[2022-01-16] MEDS ORDERED: hydrOXYzine pamoate 25 MG CAPSULE PO ONE (06:21)
[2022-01-16] MEDS: Heparin 25,000UNIT/250ML 1/2NS 25,000 UNIT/250 ML IV.SOLN IVC SCH (06:33)
[2022-01-16] MEDS: Piperacillin/Tazobactam 3.375 GM in 0.9 % Sodium Chloride Mini Bag 100 ML IVPB SCH ×2 (08:09→16:37)
[2022-01-16] MEDS: Furosemide 20 MG/2 ML VIAL IVP SCH ×2 (08:10→17:35)
[2022-01-16] MEDS: Nystatin SUSP 5 ML UD.LIQ PO SCH ×4 (08:10→20:25)
[2022-01-16] MEDS: Levothyroxine 25 MCG TABLET PO SCH (08:10)
[2022-01-16 09:00] LABS: Calcium 8.7 mg/dL (8.6-10.3); Potassium 3.3 mEq/L (3.5-5.1)
[2022-01-16] MEDS: Aspirin Enteric Coated 81 MG Tablet PO SCH (12:38)
[2022-01-16] MEDS ORDERED: DilTIAZem 50 MG/50 ML IV.SOLN IVC SCH ×2 (13:15→14:00)
[2022-01-16] MEDS: Levalbuterol Neb 0.63 MG/3 ML IH SCH ×2 (15:59→22:58)
[2022-01-16] MEDS ORDERED: Levalbuterol 1 PUFF INHALER IH SCH (16:00)
[2022-01-16] MEDS ORDERED: Nystatin SUSP 5 ML UD.LIQ ONE (20:14)
[2022-01-16] MEDS ORDERED: Mirtazapine 15 MG TABLET ONE (20:14)
[2022-01-16] MEDS: Mirtazapine 15 MG TABLET PO SCH (22:26)
[2022-01-16] MEDS: Mag Hydrox/Al Hydrox/Simeth 30 ML UDC PO SCH (22:26)
[2022-01-16] MEDS: Budesonide/Formoterol 160/4.5 1 PUFF INH IH SCH (22:58)
[2022-01-17] MEDS: Piperacillin/Tazobactam 3.375 GM in 0.9 % Sodium Chloride Mini Bag 100 ML IVPB SCH ×4 (01:19→23:59)
[2022-01-17] MEDS: Mag Hydrox/Al Hydrox/Simeth 30 ML UDC PO SCH ×4 (01:21→18:03)
[2022-01-17 03:43] LABS: Basophils % 0.2 %; Hematocrit 32.1 % (35.3-44.9); Hemoglobin 10.2 g/dL (11.5-15.4); Immature Granulocytes % 0.9 % (0-4); Immature Platelets 6.1 % (1.1-6.1); Lymphocytes # 0.4 K/mcL (0.6-4.6); Lymphocytes % 6.7 %; Mean Corpuscular HGB Conc 31.8 g/dL (31.6-35.5); Mean Corpuscular Hemoglobin 31.5 pg (28.0-33.3); Mean Corpuscular Volume 99.1 fL (83.0-100.0); Mean Platelet Volume 11.7 fL (9.4-12.4); Monocytes # 0.1 K/mcL (0.0-1.3); Monocytes % 2.6 %; Neutrophils # 4.8 K/mcL (1.6-8.9); Platelet Count 134 K/mcL (140-400); Red Blood Count 3.24 M/mcL (3.82-4.97); Red Cell Distribution Width 15.2 % (11.5-14.5); Segmented Neutrophils % 89.6 %; White Blood Count 5.4 K/mcL (4.3-11.1)
[2022-01-17 04:04] LABS: BUN/Creatinine Ratio 34 (6-26); Blood Urea Nitrogen 16 mg/dL (8-23); Calcium 8.4 mg/dL (8.6-10.3); Carbon Dioxide 34 mEq/L (23-29); Chloride 101 mEq/L (98-107); Glucose 163 mg/dL (70-105); Magnesium 1.6 mg/dL (1.6-2.6); Osmolality,Calculated 299 (280-300); Potassium 2.7 mEq/L (3.5-5.1); Sodium 142 mEq/L (136-145)
[2022-01-17] MEDS: Levalbuterol Neb 0.63 MG/3 ML IH SCH ×4 (04:44→21:57)
[2022-01-17] MEDS: MethylPREDNISolone 40 MG/ML VIAL IVP SCH (05:59)
[2022-01-17] MEDS: Heparin 25,000UNIT/250ML 1/2NS 25,000 UNIT/250 ML IV.SOLN IVC SCH (05:59)
[2022-01-17] MEDS ORDERED: Potassium Chloride Elixir 20 MEQ/15 ML UDC PO ONE (07:25)
[2022-01-17] MEDS: Furosemide 20 MG/2 ML VIAL IVP SCH (09:08)
[2022-01-17] MEDS: Levothyroxine 25 MCG TABLET PO SCH (09:08)
[2022-01-17] MEDS: Nystatin SUSP 5 ML UD.LIQ PO SCH ×4 (09:08→20:29)
[2022-01-17] MEDS: Aspirin Enteric Coated 81 MG Tablet PO SCH (09:08)
[2022-01-17] MEDS: Budesonide/Formoterol 160/4.5 1 PUFF INH IH SCH ×2 (09:22→21:57)
[2022-01-17 11:02] LABS: Calcium 9.3 mg/dL (8.6-10.3)
[2022-01-17] MEDS: DilTIAZem CD (24hr) 180 MG CAP.ER.24H PO SCH (18:11)
[2022-01-17] MEDS: Mirtazapine 15 MG TABLET PO SCH (20:29)
[2022-01-17] MEDS: Apixaban 5 MG TABLET PO SCH (20:30)
[2022-01-18 03:04] LABS: Basophils % 0.2 %; Hemoglobin 10.5 g/dL (11.5-15.4); Immature Granulocytes % 0.7 % (0-4); Lymphocytes # 0.6 K/mcL (0.6-4.6); Lymphocytes % 11.6 %; Mean Corpuscular HGB Conc 30.9 g/dL (31.6-35.5); Mean Corpuscular Hemoglobin 31.1 pg (28.0-33.3); Mean Corpuscular Volume 100.6 fL (83.0-100.0); Mean Platelet Volume 11.1 fL (9.4-12.4); Monocytes # 0.4 K/mcL (0.0-1.3); Monocytes % 7.5 %; Neutrophils # 4.3 K/mcL (1.6-8.9); Platelet Count 146 K/mcL (140-400); Red Blood Count 3.38 M/mcL (3.82-4.97); Red Cell Distribution Width 15.1 % (11.5-14.5); White Blood Count 5.3 K/mcL (4.3-11.1)
[2022-01-18 03:24] LABS: Calcium 8.5 mg/dL (8.6-10.3); Magnesium 1.6 mg/dL (1.6-2.6); Potassium 3.2 mEq/L (3.5-5.1)
[2022-01-18] MEDS: Levalbuterol Neb 0.63 MG/3 ML IH SCH ×4 (04:08→22:55)
[2022-01-18] MEDS: Apixaban 5 MG TABLET PO SCH ×2 (08:15→20:17)
[2022-01-18] MEDS: Nystatin SUSP 5 ML UD.LIQ PO SCH ×4 (08:15→20:17)
[2022-01-18] MEDS: predniSONE 20 MG TABLET PO SCH (08:15)
[2022-01-18] MEDS: Aspirin Enteric Coated 81 MG Tablet PO SCH (08:16)
[2022-01-18] MEDS: Furosemide 20 MG TABLET PO SCH (08:16)
[2022-01-18] MEDS: DilTIAZem CD (24hr) 180 MG CAP.ER.24H PO SCH (08:17)
[2022-01-18] MEDS: Piperacillin/Tazobactam 3.375 GM in 0.9 % Sodium Chloride Mini Bag 100 ML IVPB SCH ×3 (08:17→23:53)
[2022-01-18] MEDS: Levothyroxine 25 MCG TABLET PO SCH (08:17)
[2022-01-18] MEDS: Mag Hydrox/Al Hydrox/Simeth 30 ML UDC PO SCH ×5 (08:29→23:55)
[2022-01-18] MEDS: Budesonide/Formoterol 160/4.5 1 PUFF INH IH SCH ×2 (10:00→22:56)
[2022-01-18] MEDS ORDERED: Potassium Chloride Elixir 20 MEQ/15 ML UDC PO ONE (11:39)
[2022-01-18] MEDS: Mirtazapine 15 MG TABLET PO SCH (20:18)
[2022-01-19 02:57] LABS: Basophils % 0.2 %; Hematocrit 34.7 % (35.3-44.9); Hemoglobin 10.8 g/dL (11.5-15.4); Immature Granulocytes % 1.4 % (0-4); Lymphocytes # 0.5 K/mcL (0.6-4.6); Lymphocytes % 10.6 %; Mean Corpuscular HGB Conc 31.1 g/dL (31.6-35.5); Mean Corpuscular Hemoglobin 31.5 pg (28.0-33.3); Mean Corpuscular Volume 101.2 fL (83.0-100.0); Mean Platelet Volume 10.6 fL (9.4-12.4); Monocytes # 0.3 K/mcL (0.0-1.3); Monocytes % 7.1 %; Neutrophils # 3.4 K/mcL (1.6-8.9); Platelet Count 136 K/mcL (140-400); Red Blood Count 3.43 M/mcL (3.82-4.97); Red Cell Distribution Width 14.7 % (11.5-14.5); Segmented Neutrophils % 80.7 %; White Blood Count 4.3 K/mcL (4.3-11.1)
[2022-01-19 03:19] LABS: Calcium 8.7 mg/dL (8.6-10.3); Magnesium 1.5 mg/dL (1.6-2.6)
[2022-01-19] MEDS: Levalbuterol Neb 0.63 MG/3 ML IH SCH ×2 (04:26→09:22)
[2022-01-19] MEDS: Mag Hydrox/Al Hydrox/Simeth 30 ML UDC PO SCH ×2 (06:23→12:31)
[2022-01-19 06:59] VITALS: O2SAT 96
[2022-01-19] MEDS: Apixaban 5 MG TABLET PO SCH (07:55)
[2022-01-19] MEDS: Aspirin Enteric Coated 81 MG Tablet PO SCH (07:56)
[2022-01-19] MEDS: DilTIAZem CD (24hr) 180 MG CAP.ER.24H PO SCH (07:56)
[2022-01-19] MEDS: predniSONE 20 MG TABLET PO SCH (07:56)
[2022-01-19] MEDS: Levothyroxine 25 MCG TABLET PO SCH (07:56)
[2022-01-19] MEDS: Furosemide 20 MG TABLET PO SCH (07:57)
[2022-01-19] MEDS: Piperacillin/Tazobactam 3.375 GM in 0.9 % Sodium Chloride Mini Bag 100 ML IVPB SCH ×2 (07:57→15:32)
[2022-01-19] MEDS: Nystatin SUSP 5 ML UD.LIQ PO SCH ×2 (07:57→15:31)
[2022-01-19] MEDS: Budesonide/Formoterol 160/4.5 1 PUFF INH IH SCH (09:22)
[2022-01-19] MEDS ORDERED: Levalbuterol Neb 0.63 MG/3 ML IH PRN (10:59)
[2022-01-19] MEDS ORDERED: Magnesium Oxide 400 MG TABLET PO SCH (11:00)
[2022-01-19 12:15] VITALS: PULSE 78; TEMP 97.8
[2022-01-19 15:32] LABS: Adenovirus Not Detected (Not Detect); Bordetella Pertussis Not Detected (Not Detect); Chlamydophila pneumoniae Not Detected (Not Detect); Coronavirus 229E Not Detected (Not Detect); Coronavirus HKU1 Not Detected (Not Detect); Coronavirus NL63 Not Detected (Not Detect); Coronavirus OC43 Not Detected (Not Detect); Human Metapneumovirus Not Detected (Not Detect); Human Rhinovirus/Enterovirus Not Detected (Not Detect); Influenza A Subtype 2009 H1 Not Detected (Not Detect); Influenza B Not Detected (Not Detect); Mycoplasma pneumoniae Not Detected (Not Detect); Parainfluenza Virus 1 Not Detected (Not Detect); Parainfluenza Virus 2 Not Detected (Not Detect); Parainfluenza Virus 3 Not Detected (Not Detect); Parainfluenza Virus 4 Not Detected (Not Detect); Respiratory Syncytial Virus Not Detected (Not Detect); SARS-CoV-2 Not Detected (Not Detect)
[2022-01-19 15:59] VITALS: BP 136/74
== END 2022-01-19 18:48 | DRG 193 ==
LOC: ICNU → SUATTDRO 05:13 → 2NENU 22:00
PROVIDERS: ADMIT Internal Medicine; ATTEND Internal Medicine

== ENCOUNTER 2022-02-01 15:29 | Inpatient (IN) ==
[2022-02-01] MEDS ORDERED: Naloxone 0.4 MG/ML INJ IVP PRN (17:45)
[2022-02-01] MEDS ORDERED: Ipratropium/Albuterol Neb 3 ML IH PRN (18:42)
[2022-02-01] MEDS: *HR* Heparin 5,000 UNIT/ML VIAL SQ SCH (21:48)
[2022-02-02] MEDS: *HR* Heparin 5,000 UNIT/ML VIAL SQ SCH ×3 (05:29→22:07)
[2022-02-02 10:08] LABS: Basophils % 0.2 %; Eosinophils % 0.4 %; Immature Granulocytes % 0.4 % (0-4); Red Cell Distribution Width 15.2 % (11.5-14.5)
[2022-02-02 10:10] LABS: Hematocrit 26.3 % (35.3-44.9); Hemoglobin 8.3 g/dL (11.5-15.4); Immature Platelets 3.5 % (1.1-6.1); Lymphocytes % 20.2 %; Mean Corpuscular HGB Conc 31.6 g/dL (31.6-35.5); Mean Corpuscular Hemoglobin 31.8 pg (28.0-33.3); Mean Corpuscular Volume 100.8 fL (83.0-100.0); Monocytes # 0.2 K/mcL (0.0-1.3); Monocytes % 4.5 %; Neutrophils # 3.5 K/mcL (1.6-8.9); Red Blood Count 2.61 M/mcL (3.82-4.97); Segmented Neutrophils % 74.3 %; White Blood Count 4.7 K/mcL (4.3-11.1)
[2022-02-02 10:27] LABS: BUN/Creatinine Ratio 40 (6-26); Blood Urea Nitrogen 18 mg/dL (8-23); Calcium 8.9 mg/dL (8.6-10.3); Carbon Dioxide 31 mEq/L (23-29); Chloride 109 mEq/L (98-107); Glucose 115 mg/dL (70-105); Osmolality,Calculated 297 (280-300); Sodium 142 mEq/L (136-145)
[2022-02-02 11:54] LABS: Platelet Count 72 K/mcL (140-400)
[2022-02-02] MEDS: 0.9 % Sodium Chloride 1,000 ML IVC SCH (12:41)
[2022-02-02] MEDS ORDERED: CeFAZolin Syr 2,000MG/20 ML 2,000 MG/20 ML SYRINGE IVPB ONE (14:45)
[2022-02-02] MEDS ORDERED: Albuterol 2.5 MG/3 ML NEBULIZER IH ONE (16:09)
[2022-02-02] MEDS ORDERED: *HR* FentaNYL (PF) 100 MCG/2 ML VIAL IVP PRN (16:12)
[2022-02-02] MEDS ORDERED: *HR* Propofol 200 MG/20 ML VIAL IVP ONE (17:06)
[2022-02-02] MEDS ORDERED: *HR* FentaNYL (PF) 100 MCG/2 ML VIAL ONE (17:06)
[2022-02-02] MEDS ORDERED: Ondansetron 4 MG/2 ML VIAL ONE (17:07)
[2022-02-02] MEDS ORDERED: Acetaminophen IV 1,000 MG/100 ML BAG IVPB ONE (17:08)
[2022-02-02] MEDS ORDERED: Lidocaine -MPF 2% 5 ML VIAL ONE (17:19)
[2022-02-02] MEDS ORDERED: *HR* OxyCODONE Immed Rel 5 MG TABLET PO PRN (19:15)
[2022-02-02] MEDS ORDERED: Albuterol 2.5 MG/3 ML NEBULIZER IH PRN (19:15)
[2022-02-02] MEDS ORDERED: Ipratropium Neb 0.5 MG NEBULIZER IH PRN (19:15)
[2022-02-02] MEDS ORDERED: Acetaminophen IV 1,000 MG/100 ML BAG IVPB PRN (19:15)
[2022-02-02] MEDS ORDERED: *HR* HYDROmorphone PF 0.5 MG/0.5 ML SYRINGE IVP PRN (19:15)
[2022-02-02] MEDS ORDERED: Ondansetron 4 MG/2 ML VIAL IVP PRN (19:15)
[2022-02-02] MEDS ORDERED: Pregabalin 50 MG CAPSULE PO ONE (19:18)
[2022-02-03 04:48] LABS: Basophils % 0.2 %
[2022-02-03 04:49] LABS: Mean Platelet Volume 11.3 fL (9.4-12.4)
[2022-02-03 04:50] LABS: Hematocrit 26.5 % (35.3-44.9); Hemoglobin 8.1 g/dL (11.5-15.4); Immature Granulocytes % 0.6 % (0-4); Immature Platelets 3.6 % (1.1-6.1); Lymphocytes # 0.7 K/mcL (0.6-4.6); Lymphocytes % 12.9 %; Mean Corpuscular HGB Conc 30.6 g/dL (31.6-35.5); Mean Corpuscular Hemoglobin 30.7 pg (28.0-33.3); Mean Corpuscular Volume 100.4 fL (83.0-100.0); Mean Platelet Volume 11.5 fL (9.4-12.4); Monocytes # 0.2 K/mcL (0.0-1.3); Monocytes % 3.2 %; Neutrophils # 4.4 K/mcL (1.6-8.9); Red Blood Count 2.64 M/mcL (3.82-4.97); Red Cell Distribution Width 15.3 % (11.5-14.5); Segmented Neutrophils % 83.1 %; White Blood Count 5.3 K/mcL (4.3-11.1)
[2022-02-03 04:52] LABS: Platelet Count 90 K/mcL (140-400)
[2022-02-03 05:00] LABS: BUN/Creatinine Ratio 40 (6-26); Blood Urea Nitrogen 17 mg/dL (8-23); Carbon Dioxide 30 mEq/L (23-29); Chloride 107 mEq/L (98-107); Glucose 149 mg/dL (70-105); Osmolality,Calculated 298 (280-300); Potassium 4.1 mEq/L (3.5-5.1); Sodium 142 mEq/L (136-145)
[2022-02-03] MEDS: *HR* Heparin 5,000 UNIT/ML VIAL SQ SCH ×2 (06:11→13:55)
[2022-02-03] MEDS ORDERED: Furosemide 20 MG TABLET PO PRN (09:35)
[2022-02-03] MEDS ORDERED: polyethylene glycoL 3350 17 GM POWD.PACK PO PRN (09:35)
[2022-02-03] MEDS: Budesonide/Formoterol 160/4.5 1 PUFF INH IH SCH ×2 (10:44→22:28)
[2022-02-03] MEDS: Acetaminophen 325 MG TABLET PO PRN (11:32)
[2022-02-03] MEDS: DilTIAZem CD (24hr) 180 MG CAP.ER.24H PO SCH (11:33)
[2022-02-03] MEDS: Apixaban 5 MG TABLET PO SCH (19:58)
[2022-02-03] MEDS: Mirtazapine 15 MG TABLET PO SCH (19:58)
[2022-02-03] MEDS: Ringers Solution, Lactated 1,000 ML IVC SCH (19:59)
[2022-02-03] MEDS: 0.9 % Sodium Chloride 1,000 ML IVC SCH (19:59)
[2022-02-04] MEDS: Budesonide/Formoterol 160/4.5 1 PUFF INH IH SCH ×2 (07:52→21:18)
[2022-02-04] MEDS: DilTIAZem CD (24hr) 180 MG CAP.ER.24H PO SCH (08:43)
[2022-02-04] MEDS: Levothyroxine 25 MCG TABLET PO SCH (08:44)
[2022-02-04] MEDS: Apixaban 5 MG TABLET PO SCH ×2 (08:44→21:28)
[2022-02-04] MEDS: Mirabegron [Myrbetriq] 50 MG Tab.Er.24h PO SCH (08:48)
[2022-02-04 10:27] LABS: Basophils % 0.4 %; Eosinophils % 0.4 %; Hematocrit 28.2 % (35.3-44.9); Hemoglobin 8.9 g/dL (11.5-15.4); Immature Granulocytes % 0.7 % (0-4); Lymphocytes # 0.9 K/mcL (0.6-4.6); Lymphocytes % 16.4 %; Mean Corpuscular HGB Conc 31.6 g/dL (31.6-35.5); Mean Corpuscular Hemoglobin 31.6 pg (28.0-33.3); Mean Platelet Volume 10.1 fL (9.4-12.4); Monocytes # 0.2 K/mcL (0.0-1.3); Monocytes % 4.2 %; Neutrophils # 4.4 K/mcL (1.6-8.9); Platelet Count 100 K/mcL (140-400); Red Blood Count 2.82 M/mcL (3.82-4.97); Red Cell Distribution Width 15.3 % (11.5-14.5); Segmented Neutrophils % 77.9 %; White Blood Count 5.7 K/mcL (4.3-11.1)
[2022-02-04 10:46] LABS: BUN/Creatinine Ratio 32 (6-26); Blood Urea Nitrogen 14 mg/dL (8-23); Calcium 8.9 mg/dL (8.6-10.3); Carbon Dioxide 35 mEq/L (23-29); Chloride 104 mEq/L (98-107); Glucose 111 mg/dL (70-105); Osmolality,Calculated 297 (280-300); Potassium 3.6 mEq/L (3.5-5.1); Sodium 143 mEq/L (136-145)
[2022-02-04] MEDS: Acetaminophen 325 MG TABLET PO PRN (11:28)
[2022-02-04] MEDS: 0.9 % Sodium Chloride 1,000 ML IVC SCH (14:07)
[2022-02-04] MEDS: Ringers Solution, Lactated 1,000 ML IVC SCH (14:13)
[2022-02-04] MEDS: Mirtazapine 15 MG TABLET PO SCH (21:28)
[2022-02-05] MEDS: DilTIAZem CD (24hr) 180 MG CAP.ER.24H PO SCH (07:47)
[2022-02-05] MEDS: Levothyroxine 25 MCG TABLET PO SCH (07:47)
[2022-02-05] MEDS: Apixaban 5 MG TABLET PO SCH ×2 (07:47→19:28)
[2022-02-05] MEDS: Mirabegron [Myrbetriq] 50 MG Tab.Er.24h PO SCH (07:48)
[2022-02-05] MEDS: Budesonide/Formoterol 160/4.5 1 PUFF INH IH SCH ×2 (09:43→19:58)
[2022-02-05] MEDS: Acetaminophen 325 MG TABLET PO PRN (13:28)
[2022-02-05] MEDS: Miconazole 2% ointment 141 APPL/141 GM TUBE TP SCH (19:28)
[2022-02-05] MEDS: Mirtazapine 15 MG TABLET PO SCH (19:28)
[2022-02-05] MEDS ORDERED: Furosemide 20 MG/2 ML VIAL IVP ONE (23:50)
[2022-02-06 06:59] LABS: Basophils % 0.2 %; Eosinophils # 0.1 K/mcL (0.0-0.6); Eosinophils % 1.2 %; Hematocrit 27.9 % (35.3-44.9); Hemoglobin 8.7 g/dL (11.5-15.4); Immature Granulocytes % 0.4 % (0-4); Lymphocytes # 0.9 K/mcL (0.6-4.6); Lymphocytes % 18.7 %; Mean Corpuscular HGB Conc 31.2 g/dL (31.6-35.5); Mean Corpuscular Hemoglobin 30.6 pg (28.0-33.3); Mean Corpuscular Volume 98.2 fL (83.0-100.0); Mean Platelet Volume 10.1 fL (9.4-12.4); Monocytes # 0.3 K/mcL (0.0-1.3); Monocytes % 5.8 %; Neutrophils # 3.5 K/mcL (1.6-8.9); Platelet Count 109 K/mcL (140-400); Red Blood Count 2.84 M/mcL (3.82-4.97); Red Cell Distribution Width 15.1 % (11.5-14.5); Segmented Neutrophils % 73.7 %; White Blood Count 4.8 K/mcL (4.3-11.1)
[2022-02-06 07:23] LABS: BUN/Creatinine Ratio 23 (6-26); Blood Urea Nitrogen 9 mg/dL (8-23); Calcium 8.5 mg/dL (8.6-10.3); Carbon Dioxide 30 mEq/L (23-29); Chloride 104 mEq/L (98-107); Glucose 100 mg/dL (70-105); Osmolality,Calculated 289 (280-300); Potassium 3.6 mEq/L (3.5-5.1); Sodium 140 mEq/L (136-145)
[2022-02-06] MEDS: Levothyroxine 25 MCG TABLET PO SCH (08:18)
[2022-02-06] MEDS: DilTIAZem CD (24hr) 180 MG CAP.ER.24H PO SCH (08:18)
[2022-02-06] MEDS: Apixaban 5 MG TABLET PO SCH ×2 (08:18→20:52)
[2022-02-06] MEDS: Mirabegron [Myrbetriq] 50 MG Tab.Er.24h PO SCH (08:20)
[2022-02-06] MEDS ORDERED: levoFLOXacin 750 MG TABLET PO SCH (09:00)
[2022-02-06] MEDS: *HR* OxyCODONE/APAP 5/325 TABLET PO PRN (11:41)
[2022-02-06] MEDS: Miconazole 2% ointment 141 APPL/141 GM TUBE TP SCH ×2 (11:42→20:53)
[2022-02-06] MEDS ORDERED: metroNIDAZOLE 500 MG TABLET PO SCH (12:00)
[2022-02-06] MEDS ORDERED: Furosemide 20 MG/2 ML VIAL IVP ONE (12:01)
[2022-02-06] MEDS: Budesonide/Formoterol 160/4.5 1 PUFF INH IH SCH ×2 (13:07→21:09)
[2022-02-06] MEDS: Ipratropium/Albuterol Neb 3 ML IH SCH ×2 (15:41→21:09)
[2022-02-06] MEDS: MetroNIDAZOLE 500 MG/100 ML 500 MG/100 ML BAG IVPB SCH (17:13)
[2022-02-06] MEDS: Mirtazapine 15 MG TABLET PO SCH (20:52)
[2022-02-07] MEDS: MetroNIDAZOLE 500 MG/100 ML 500 MG/100 ML BAG IVPB SCH ×2 (00:14→07:48)
[2022-02-07] MEDS: Ipratropium/Albuterol Neb 3 ML IH SCH ×4 (04:23→22:05)
[2022-02-07 06:09] LABS: Basophils % 0.2 %; Eosinophils # 0.1 K/mcL (0.0-0.6); Eosinophils % 1.1 %; Hematocrit 26.2 % (35.3-44.9); Hemoglobin 8.2 g/dL (11.5-15.4); Immature Granulocytes % 1.1 % (0-4); Lymphocytes % 20.5 %; Mean Corpuscular HGB Conc 31.3 g/dL (31.6-35.5); Mean Corpuscular Hemoglobin 30.7 pg (28.0-33.3); Mean Corpuscular Volume 98.1 fL (83.0-100.0); Mean Platelet Volume 10.3 fL (9.4-12.4); Monocytes # 0.4 K/mcL (0.0-1.3); Monocytes % 7.7 %; Neutrophils # 3.3 K/mcL (1.6-8.9); Platelet Count 113 K/mcL (140-400); Red Blood Count 2.67 M/mcL (3.82-4.97); Red Cell Distribution Width 15.4 % (11.5-14.5); Segmented Neutrophils % 69.4 %; White Blood Count 4.7 K/mcL (4.3-11.1)
[2022-02-07 06:31] LABS: Alanine Aminotransferase < 3 Units/L (7-52); Albumin 2.7 g/dL (3.5-5.7); Albumin/Globulin Ratio 1.3 (1.1-2.2); Alkaline Phosphatase 60 Units/L (34-104); Aspartate Amino Transferase 9 Units/L (13-39); BUN/Creatinine Ratio 16 (6-26); Bilirubin,Total 0.8 mg/dL (0.3-1.0); Blood Urea Nitrogen 7 mg/dL (8-23); Calcium 8.7 mg/dL (8.6-10.3); Carbon Dioxide 30 mEq/L (23-29); Chloride 105 mEq/L (98-107); Globulin 2.1 g/dL (2.4-3.5); Glucose 110 mg/dL (70-105); Osmolality,Calculated 289 (280-300); Potassium 3.5 mEq/L (3.5-5.1); Sodium 140 mEq/L (136-145); Total Protein 4.8 g/dL (6.4-8.9)
[2022-02-07] MEDS: Levothyroxine 25 MCG TABLET PO SCH (07:45)
[2022-02-07] MEDS: Mirabegron [Myrbetriq] 50 MG Tab.Er.24h PO SCH (07:45)
[2022-02-07] MEDS: DilTIAZem CD (24hr) 180 MG CAP.ER.24H PO SCH (07:45)
[2022-02-07] MEDS: Apixaban 5 MG TABLET PO SCH ×2 (07:45→22:08)
[2022-02-07] MEDS: Miconazole 2% ointment 141 APPL/141 GM TUBE TP SCH ×2 (07:46→22:08)
[2022-02-07] MEDS: Furosemide 20 MG TABLET PO SCH (08:59)
[2022-02-07] MEDS ORDERED: levoFLOXacin 750 MG/150 ML 750 MG/150 ML BAG IVPB SCH (09:00)
[2022-02-07] MEDS: Budesonide/Formoterol 160/4.5 1 PUFF INH IH SCH ×2 (10:34→22:05)
[2022-02-07] MEDS: Artificial Tears SOLN 15 ML BOTTLE BOTH EYES SCH ×3 (13:28→22:08)
[2022-02-07] MEDS ORDERED: Haloperidol Lactate 5 MG/ML VIAL IVP PRN (18:16)
[2022-02-07] MEDS: Pregabalin 25 MG CAPSULE PO SCH (22:08)
[2022-02-07] MEDS: Mirtazapine 15 MG TABLET PO SCH (22:08)
[2022-02-07] MEDS: *HR* OxyCODONE/APAP 5/325 TABLET PO PRN (22:10)
[2022-02-08] MEDS: Albumin 25% 25gram/100mL 25 GM/100 ML IV.SOLN IVPB SCH ×3 (00:14→17:00)
[2022-02-08 03:15] VITALS: BP 145/71; PULSE 70; TEMP 98.9
[2022-02-08 05:35] LABS: % Iron Saturation 12 % (15-50); BUN/Creatinine Ratio 14 (6-26); Blood Urea Nitrogen 6 mg/dL (8-23); Calcium 8.9 mg/dL (8.6-10.3); Carbon Dioxide 28 mEq/L (23-29); Chloride 105 mEq/L (98-107); Glucose 106 mg/dL (70-105); Iron 20 mcg/dL (50-170); Osmolality,Calculated 290 (280-300); Potassium 3.7 mEq/L (3.5-5.1); Prealbumin 7.9 mg/dL (17.0-34.0); Sodium 141 mEq/L (136-145); Transferrin 118 mg/dL (203-362)
[2022-02-08] MEDS: Ipratropium/Albuterol Neb 3 ML IH SCH ×3 (05:35→15:36)
[2022-02-08] MEDS: Apixaban 5 MG TABLET PO SCH ×2 (08:03→21:16)
[2022-02-08] MEDS: Furosemide 20 MG TABLET PO SCH (08:03)
[2022-02-08] MEDS: DilTIAZem CD (24hr) 180 MG CAP.ER.24H PO SCH (08:04)
[2022-02-08] MEDS: Levothyroxine 25 MCG TABLET PO SCH (08:04)
[2022-02-08] MEDS: Pregabalin 25 MG CAPSULE PO SCH ×2 (08:04→21:16)
[2022-02-08] MEDS: Artificial Tears SOLN 15 ML BOTTLE BOTH EYES SCH ×4 (08:10→21:17)
[2022-02-08] MEDS: Budesonide/Formoterol 160/4.5 1 PUFF INH IH SCH (10:20)
[2022-02-08 10:24] VITALS: O2SAT 96
[2022-02-08] MEDS: Mirabegron [Myrbetriq] 50 MG Tab.Er.24h PO SCH (13:43)
[2022-02-08] MEDS: Miconazole 2% ointment 141 APPL/141 GM TUBE TP SCH ×2 (13:43→21:18)
[2022-02-08 15:36] LABS: Influenza A PCR Negative (Negative); Influenza B PCR Negative (Negative); Resp. Syncytial Virus PCR Negative (Negative); SARS-CoV-2 by PCR (In House) Negative (Negative)
[2022-02-08] MEDS: *HR* OxyCODONE/APAP 5/325 TABLET PO PRN (17:01)
[2022-02-08] MEDS: Mirtazapine 15 MG TABLET PO SCH (21:17)
[2022-02-09] MEDS: Budesonide/Formoterol 160/4.5 1 PUFF INH IH SCH (02:08)
[2022-02-09] MEDS: Ipratropium/Albuterol Neb 3 ML IH SCH ×2 (02:08→04:46)
== END 2022-02-08 22:30 | DRG 492 ==
LOC: 4WAOSI → SUATTDRO 02-02 15:32
PROVIDERS: ADMIT Internal Medicine; ATTEND Student in an Organized Health Care Education/Training Program